=== PATIENT | male | born 1950 | race Caucasian/White ===

== ENCOUNTER 2017-08-03 20:55 | Emergency (ER) | payer MEDICARE, OTHER, SELFPAY ==
[2017-08-03 20:56] VITALS: BP 126/78; PULSE 72; RESP 18; TEMP 36.8; O2SAT 97; BMI 23.7
--- NOTE | 2017-08-03 20:59 | RAD_ITS ---
STUDY: X-RAY - LEFT WRIST REASON FOR EXAM: Male, 67 years old. Fall, pain TECHNIQUE: 3 view(s) of the wrist were obtained. COMPARISON: None. FINDINGS: Normal visualized distal radius and ulna. Normal radiocarpal articulation. Normal distal radioulnar articulation. There is a transverse fracture of the waist of the scaphoid carpal bone. Normal carpal articulations. Normal carpometacarpal articulation of the thumb. Normal second through fifth carpometacarpal articulations. Normal visualized metacarpal bones. Mild dorsal soft tissue swelling. RAD/Wrist min 3 Views IMPRESSION: Nondisplaced fracture waist of the scaphoid. Electronically Signed: Britton Villagomez DO at 21:13 EDT , Service support ,
--- NOTE | 2017-08-03 22:22 | ED.DCSUM_ITS ---
- ER Visit Summary Date of Service: 08/03/17 Chief Complaint: Left wrist injury History of Present Illness: The patient is a 67 M who tripped and fell today injuring his left wrist. Patient states that he had initially had a swollen area at the base of the fourth metacarpal that he popped back into place. He denies striking his head or loss of consciousness. He is right-hand dominant. Physical Examination: Vital signs are unremarkable. Patient sitting upright in bed no acute distress. Head neck examination was no external sign of trauma. No C-spine tenderness. Heart is regular rate and rhythm. On lung sounds are clear. Left upper extremity examination reveals no tenderness of the left shoulder or elbow. He does have diffuse tenderness around the left wrist with mild edema. He has normal sensation and cap refill in his fingers. He is able to wiggle fingers without difficulty. Test Results: Left wrist x-rays reveal nondisplaced fracture at the waist of the scaphoid bone. Emergency Department Course and Treatment: Test results were discussed with patient and at bedside. Patient declines anything for pain. He is placed in an Ortho-Glass thumb spica splint. I discussed with him the importance of very close follow-up due to the blood flow to this bone and sometimes having difficulty getting it to heal appropriately. He understands. He is a patient of [facility] and he is given Dr. Abernathy's phone number for follow-up. He is also given Dr. Varma who is on-call for [facility] orthopedics. Treatment Plan: [] Disposition: Discharge Impression: 1. Mechanical fall 2. Left scaphoid fracture This note was generated with [employer] dictation software. It may contain incorrect words, spelling, and punctuation that were not noted in review of the chart prior to signing ED Disposition - Plan for ED Patient: Disposition: Home or Assisted Living Chief Complaint: Upper Extremity Injury Instructions: ED Fx Wrist Navicular Conf Referrals: Bartolo Abernathy MD [STAFF PHYSICIAN] - 5-7 Days Jamie Varma MD [STAFF PHYSICIAN] - 5-7 Days
== END 2017-08-03 23:00 | disposition home or self-care (01) ==
PROVIDERS: Emergency Provider Emergency Medicine; Family Provider Family Medicine; PCP Family Medicine
DX: S62.002A Unspecified fracture of navicular [scaphoid] bone of left wrist, initial encounter for closed fracture (principal); W01.0XXA Fall on same level from slipping, tripping and stumbling without subsequent striking against object, initial encounter; Y93.9 Activity, unspecified; Y92.9 Unspecified place or not applicable; Z90.49 Acquired absence of other specified parts of digestive tract
CPT/HCPCS: 29125; 73110; 99282

== ENCOUNTER 2018-08-27 05:18 | Inpatient (IN) | payer MEDICARE, OTHER, SELFPAY ==
[2018-08-27] VITALS (15 sets, daily range): BP systolic 109–144; BP diastolic 60–92; PULSE 78–97; RESP 16–18; TEMP 36.9–37.9; O2SAT 95–100; BMI 21.9
--- NOTE | 2018-08-27 05:38 | CT_ITS ---
ABDOMEN PAIN X 6 WEEKS BUT WORSE THIS AMHX:BPH,GILBERT'S SYNDROME,LUPUS,PARKINSON'S.APPENDECTOMY,CHOLECYSTECTOMY no history of recent surgery EXAMINATION: CT Abdomen And Pelvis W/O Contrast TECHNIQUE: Helically acquired images were obtained of the abdomen and pelvis without oral or IV contrast as per renal stone protocol. A radiation dose optimization technique was used for this scan. IV Contrast dosage and agent: None. Oral contrast: None. COMPARISON: None FINDINGS: Lower thorax: Clear. No pleural effusion or pericardial effusion. Normal heart size. Small pneumoperitoneum with gas primarily anterior to the liver. Surgical absence of the gallbladder. No biliary dilatation. Limited non-infusion exam. Allowing for this, negative liver and spleen. Poor definition of the pancreatic head and question mild peripancreatic edema and mild periduodenal edema of the proximal duodenum. Gas and fluid within the stomach and fluid within the duodenum which is nondilated. Both kidneys are normal in position. No renal or ureteral calculi and no hydronephrosis or hydroureter. Bilateral small renal cysts. Adrenal glands are not enlarged. Abdominal aorta is atherosclerotic and normal in caliber. No retroperitoneal lymph node enlargement. No free fluid identified within the abdomen or pelvis. GI tract: No obstruction. Constipation pattern with large fecal residue within the right and transverse colon. Distal diverticulosis coli. No diverticulitis or pericolonic inflammatory changes seen. Previous appendectomy. Pelvis: Mild prostatic enlargement. Normal urinary bladder. No free fluid or lymph node enlargement. Metallic tacks related to previous right inguinal hernia repair. Bones: No acute osseous abnormality. CT/Abdomen/Pelvis without Cont IMPRESSION: 1. Small pneumoperitoneum primarily within the upper abdomen, anterior to the liver. No history of recent surgery and therefore a perforated abdominal viscus appears likely. 2. Peripancreatic edema bordering the pancreatic head and adjacent cruz-duodenal edema is questioned. Previous cholecystectomy. 3. Constipation pattern. Diverticulosis coli. No diverticulitis seen. 4. Additional chronic changes, as above. Comment: Abnormal CT findings discussed by Dr. Batista with Dr. Jourdan Funk, the referring ER physician. Individualized dose optimization techniques were used for this CT. at 0657 Reported and signed by: Garcia Batista MD Electronically Signed: Garcia Batista, at 6:56 EDT Tel , Service support ,
--- NOTE | 2018-08-27 05:40 | ED.DCSUM_ITS ---
- ER Visit Summary Date of Service: 08/27/18 Chief Complaint: Abdominal pain History of Present Illness: The patient is a 68 M who presents with abdominal pain. This initially began about 6 weeks ago when he was started on Sinemet. The prescription was increased and his abdominal pain also increased. He was told to go back to the previous dosing by his neurologist. However his pain is continued and has been severe. There were no particular change in symptoms this morning. He denies any nausea vomiting or diarrhea. No fever chest pain or shortness of breath. No urinary symptoms. He has had a prior cholecystectomy. He also has a history of ruptured appendicitis which was treated just with an tibiotics. Physical Examination: Afebrile vitals notable for temporal artery temperature 99.9 Heart regular rate and rhythm Lungs clear Abdomen soft nondistended he does have epigastric tenderness without guarding without rebound Alert Test Results: Labs notable for white blood cell count 14.5. Total bilirubin is 2.2. CT of the abdomen and pelvis shows small pneumoperitoneum anterior to the liver and possible peripancreatic edema, constipation. Emergency Department Course and Treatment: Patient's pain on presentation was 4. He initially declined medications but then did request something but does not want any narcotics. He was given 15 mg of IV Toradol. His work-up as above is concerning for viscus perforation. I spoke to Dr. Roy for surgical consultation. Patient was given IV Zosyn here. Treatment Plan: [] Disposition: Pending surgical consult Impression: Pneumoperitoneum This note was generated with [employer] dictation software. It may contain incorrect words, spelling, and punctuation that were not noted in review of the chart prior to signing ED Disposition - Plan for ED Patient: Referrals: Gerald Winslow MD [Primary Care Provider] -
[2018-08-27 05:48] LABS: Absolute Lymphocyte Count 0.72 X10^3/ul (0.83-4.51); Absolute Neutrophil Count 12.2 X10^3/uL (2.0-7.7); Basophil# 0.02 X10^3/uL; Basophil% 0.1 % (0-1); Eosinophil# 0.06 X10^3/uL; Eosinophils% 0.4 % (0-5); Hematocrit 42.6 % (40-54); Lymphocyte # 0.72 X10^3/ul (4.0); Mean Corp Hgb Conc 35.2 g/gl (32-36); Mean Corpuscular Hgb 32.4 pg (27.0-32.0); Mean Platelet Vol. 9.7 fl (6.2-12.0); Monocyte# 1.48 X10^3/uL; Monocyte% 10.2 % (0-10); Neutrophil # 12.15 X10^3/uL (2.7-7.7); POSITIVE COUNT NO; POSITIVE DIFFERENTIAL NO; POSITIVE MORPHOLOGY NO; Platelet Count 247 K/mm3 (150-450); RBC Distribution Width CV 12.7 % (11.6-14.6); RBC Distribution Width SD 41.8 fl (35.1-43.9); Red Blood Count 4.63 M/mm3 (4.6-6.2); White Blood Count 14.5 K/mm3 (4.4-11.0)
[2018-08-27] MEDS: Ketorolac 30 MG/ML Syringe 15 MG IV (05:49)
[2018-08-27] MEDS: 0.9% Normal Saline 1,000 ML 1000 ML IV (05:49)
[2018-08-27 06:00] LABS: Albumin, Serum 3.6 g/dL (3.2-5.0); BUN 28 mg/dL (7-18); BUN/Creat Ratio 31.6 RATIO (10-20); Creatinine, Serum 0.88 mg/dL (0.70-1.30); EST Glomerular Filtration Rate 91 mL/min (>60); Est Glom Filt Rate - Afr Amer 110 mL/min (>60); Estimated Creatinine Clearance 77.54 ml/min; Glucose 112 mg/dL (74-106); Protein, Total 7.3 g/dL (6.4-8.2)
[2018-08-27 06:01] LABS: AST(SGOT) 26 U/L (15-37); Alanine Aminotransfer ALT/SGPT 47 U/L (16-61); Alkaline Phosphatase 95 U/L (45-117); Anion Gap 7 (5-15); Calcium,Total 8.8 mg/dL (8.5-10.1); Chloride 103 mmol/L (98-107); Globulin 3.7 g/dL (2.2-4.2); Lipase 62 U/L (73-393); Potassium 4.2 mmol/L (3.5-5.1); Sodium Level 136 mmol/L (136-145)
--- NOTE | 2018-08-27 07:25 | ED.RN ---
DR VILLARREAL PRESENT AT PT BEDSIDE.
--- NOTE | 2018-08-27 07:30 | PCM.HP.STD ---
Problem List (1) Epigastric abdominal pain of unknown etiology Status: Acute (2) Perforated abdominal viscus Status: Acute History of Present Illness Date of Admission: 08/27/18 The patient is a 68 year old M who presented last night with abdominal pain.This initially began about 6 weeks ago when he was started on Sinemet. The prescription was increased and his abdominal pain also increased. He was told to go back to the previous dosing by his neurologist. However his pain is continued and has been severe. There were no particular change in symptoms this morning. He denies any nausea vomiting or diarrhea. No fever chest pain or shortness of breath. No urinary symptoms. He has had a prior cholecystectomy. He also has a history of ruptured appendicitis which was treated just with antibiotics. In addition the patient has been on Mobic for possible meniscus tear to his left knee. Subsequently was also stopped. While in the emergency department a CAT scan of the abdomen was obtained which showed air over the liver possible swelling of the duodenum pancreatic head was not easily seen due to edema around the area. Past Medical History Allergies No Known Allergies Allergy (Verified 08/03/17 20:56) Home Medications: Ambulatory Orders Medication Instructions Recorded Cholecalciferol (VIT D3) [Vitamin 1,000 unit PO DAILY 08/27/18 D] Digestive 8/L.acidoph/Pectin 1 each PO ACHS 08/27/18 [Digestive Enzymes Tablet] Hi Lipase Enzyme With Fatty Me 1 tab PO DAILY 08/27/18 Mens X- Action Reloaded 1 tab PO DAILY 08/27/18 Multivitamin with Minerals 1 each PO DAILY 08/27/18 [Multiple Vitamin] [place]-3 Fatty Acids/Fish Oil [Fish 1 each PO DAILY 08/27/18 Oil 1,000 mg Capsule] Testoplex Plus 1 tab PO DAILY 08/27/18 Vitamin B Complex 1 each PO DAILY 08/27/18 Surgical History: cholecystectomy Lives: Spouse/ Significant Other Smoking Status: Never smoker - *Family History Maternal History Items: No pertinent history Review of Systems Constitutional: Denies: Chills, Fever, Weight Change Eyes: Denies: Blurred vision, Pain, Redness, Vision Change HEENT: Denies: Dysphasia, Ear Pain, Eye Pain, Head Aches, Hearing Changes, Sore Throat Cardiovascular: Denies: Chest Pain, Chest Pressure, Chest Tightness, Palpitations Respiratory: Denies: Cough, Hemoptysis, Shortness of breath at rest, Shortness of breath upon exertion, Wheezing Gastrointestinal: Reports: Abdominal Pain. Denies: Diarrhea, Nausea, Vomiting Genitourinary: Denies: Dysuria, Frequency, Hematuria, Urgency Musculoskeletal: Denies: Joint Pain Skin: Denies: Lesions, Rash, Wounds Neurological: Denies: Change in Speech, Confusion, Numbness, Tingling, Seizures VTE Information - Inpt Only VTE Present on Admission: No VTE Mechan Device Prophylaxis: SCD's VTE Pharm Prophylaxis ordered?: No Reason prophylaxis not ordered:: Treatment Not Indicated Patient Problems: Active and Suspected Problems Epigastric abdominal pain of unknown etiology (Acute) Perforated abdominal viscus (Acute) - Physical Exam General: Alert, Oriented x3 Lungs: Clear to auscultation Cardiovascular: Regular rate, Regular Rhythm, No murmurs Abdomen: Tender - His abdomen is soft he has obvious peritoneal signs mostly located in the epigastric area. Vital Signs Temp Pulse Resp BP Pulse Ox 99.9 F H 79 16 140/80 H 99 08/27/18 05:19 08/27/18 07:26 08/27/18 07:26 08/27/18 07:26 08/27/18 07:26 Oxygen Delivery Method Room Air Weight: 152 lb 8.958 oz Body Mass Index (BMI) 21.9 Laboratory Tests Past 24 Hrs 08/27/18 08/27/18 05:25 05:25 WBC 14.5 H RBC 4.63 Hgb 15.0 Hct 42.6 MCV 92.0 MCH 32.4 H MCHC 35.2 RDW 12.7 RDW Differential 41.8 Plt Count 247 MPV 9.7 Immature Gran % (Auto) 0.300 Neut % (Auto) 84.0 H Lymph % (Auto) 5.0 L [place] % (Auto) 10.2 H Eos % (Auto) 0.4 Baso % (Auto) 0.1 Absolute Neuts (auto) 12.2 H Absolute Lymphs (auto) 0.72 L Total Counted Not Reportable Sodium 136 Potassium 4.2 Chloride 103 Carbon Dioxide 26.0 Anion Gap 7 BUN 28 H Creatinine 0.88 Estim Creat Clear Calc 77.54 Est GFR (MDRD) Af Amer 110 Est GFR (MDRD) Non-Af 91 BUN/Creatinine Ratio 31.6 H Glucose 112 H Calcium 8.8 Total Bilirubin 2.20 H AST 26 ALT 47 Alkaline Phosphatase 95 Total Protein 7.3 Albumin 3.6 Globulin 3.7 Albumin/Globulin Ratio 1.0 Lipase 62 L Assessment/Plan All Active Problems Epigastric abdominal pain of unknown etiology (Acute) Perforated abdominal viscus (Acute) Plan is to taken for an exploratory laparoscopy possible laparotomy. He more likely has a perforated duodenal ulcer which we will hopefully be able to be treated with a Som patch and irrigation of the abdomen. Risk and benefits to include bleeding infection possible heart attacks pneumonia strokes up to and including have all been explained to the patient and his spouse they are willing to proceed.
[2018-08-27] MEDS: Bupivacaine Mpf 0.5% 30 ML VIAL (08:45)
--- NOTE | 2018-08-27 09:24 | PCM.OPRPT ---
Problem List (1) Epigastric abdominal pain of unknown etiology Status: Acute (2) Perforated abdominal viscus Status: Acute (3) Perforated duodenal bulb ulcer Status: Acute Report of Operation Date of Procedure: 08/27/18 Pre-Operative Diagnosis: Epigastric abdominal pain. Perforated viscus Post-Operative Diagnosis: Perforated duodenal bulb ulcer Surgery/Procedure Performed:: Exploratory laparoscopy and Som patch repair of duodenal bulb ulcer Type of Anesthesia:: General Anesthesiologist: Charanjit Tadeo Drains: 15 round Alex-Gudino Estimated Blood Loss (mL): < 25 CC Fluids Replaced: 1200 cc LR Description of Procedure: Patient was brought into the operating room placed in the supine position under excellent general trach intubation Hallman catheter was placed. The abdomen was sterilely prepped and draped in the usual fashion. Local was injected if umbilically. Dissection was carried down fascia was grasped with Jolie varies needle was placed inside the abdomen the abdomen was insufflated 15 torr a 10/12 trocar was placed without difficulty. Right upper quadrant #5 trocar was placed in left upper quadrant #5 trocar was placed and became very apparent as we just inflated the abdomen and placed the patient in the head up position that a small 3 mm perforated duodenal bulb ulcer was identified. There is a lot of swelling in the area it was not actively bleeding. I isolated a piece of omentum which was actually quite difficult to do on him since he was so thin off of the transverse colon I brought it up it was going to easily cover this patch. I placed my first stitch onto the tissue superior to where the duodenal ulcer was this quickly ripped through made a determination I was going to have to actually patch this off of the falciform ligament. I placed the O Endo Stitch through this area and brought the other into the Endo Stitch through the omentum. Dhaval's knot was used with a knot pusher and I placed the patch so that it covered the defect completely. I made the determination looking and feeling around the tissue here that I was not going to be able to place any other sutures on the duodenum nor the stomach itself. I placed a 15 round Alex-Gudino drain going near the perforation keeping it in the lesser sac. I irrigated out the abdomen with 2 L of irrigation. I sutured the drain in place with a 3-0 nylon. I remove the trochars under direct visualization I good hemostasis. SASKIA drain was hooked to bulb suction 1012 trocar was closed with a [id number] stitch of 0 Vicryl skin incisions were closed with subcuticular stitches of 4-0 Monocryl. Patient tolerated the procedure well. - Admit VTE Documentation VTE Present on Admission: No VTE Mechan Device Prophylaxis: SCD's VTE Pharm Prophylaxis ordered?: No Reason prophylaxis not ordered:: Treatment Not Indicated
--- NOTE | 2018-08-27 09:31 | OP.PCM_ITS ---
Problem List (1) Epigastric abdominal pain of unknown etiology Status: Acute (2) Perforated abdominal viscus Status: Acute (3) Perforated duodenal bulb ulcer Status: Acute Report of Operation Date of Procedure: 08/27/18 Pre-Operative Diagnosis: Epigastric abdominal pain. Perforated viscus Post-Operative Diagnosis: Perforated duodenal bulb ulcer Surgery/Procedure Performed:: Exploratory laparoscopy and Som patch repair of duodenal bulb ulcer Type of Anesthesia:: General Anesthesiologist: Charanjit Tadeo Drains: 15 round Alex-Gudino Estimated Blood Loss (mL): < 25 CC Fluids Replaced: 1200 cc LR Description of Procedure: Patient was brought into the operating room placed in the supine position under excellent general trach intubation Hallman catheter was placed. The abdomen was sterilely prepped and draped in the usual fashion. Local was injected if umbilically. Dissection was carried down fascia was grasped with Jolie varies needle was placed inside the abdomen the abdomen was insufflated 15 torr a 10/12 trocar was placed without difficulty. Right upper quadrant #5 trocar was placed in left upper quadrant #5 trocar was placed and became very apparent as we just inflated the abdomen and placed the patient in the head up position that a small 3 mm perforated duodenal bulb ulcer was identified. There is a lot of swelling in the area it was not actively bleeding. I isolated a piece of omentum which was actually quite difficult to do on him since he was so thin off of the transverse colon I brought it up it was going to easily cover this patch. I lele lisa my first stitch onto the tissue superior to where the duodenal ulcer was this quickly ripped through made a determination I was going to have to actually patch this off of the falciform ligament. I placed the O Endo Stitch through this area and brought the other into the Endo Stitch through the omentum. Dhaval's knot was used with a knot pusher and I placed the patch so that it covered the defect completely. I made the determination looking and feeling around the tissue here that I was not going to be able to place any other sutures on the duodenum nor the stomach itself. I placed a 15 round Alex- Gudino drain going near the perforation keeping it in the lesser sac. I irrigated out the abdomen with 2 L of irrigation. I sutured the drain in place with a 3-0 nylon. I remove the trochars under direct visualization I good hemostasis. SASKIA drain was hooked to bulb suction 1012 trocar was closed with a [id number] stitch of 0 Vicryl skin incisions were closed with subcuticular stitches of 4-0 Monocryl. Patient tolerated the procedure well. - Admit VTE Documentation VTE Present on Admission: No VTE Mechan Device Prophylaxis: SCD's VTE Pharm Prophylaxis ordered?: No Reason prophylaxis not ordered:: Treatment Not Indicated
[2018-08-27] MEDS: Lactated Ringers 1,000 ML 125 ML IV ×2 (10:45→19:26)
[2018-08-27] MEDS: Sucralfate 1 GM Tablet PO ×3 (11:25→22:11)
[2018-08-27] MEDS: Carbidopa/Levodopa 25/100 Tablet PO ×2 (11:39→15:53)
[2018-08-27] MEDS: Ondansetron 4 MG/2 ML Vial IV (19:26)
[2018-08-27] MEDS: HYDROmorphone 1 MG/ML Syringe IV (19:26)
[2018-08-28 03:20] VITALS: BP 126/68; PULSE 81; RESP 16; TEMP 37.2; O2SAT 98
[2018-08-28] MEDS: Lactated Ringers 1,000 ML 125 ML IV ×3 (03:22→18:36)
[2018-08-28] MEDS: Sucralfate 1 GM Tablet PO ×5 (03:22→21:37)
[2018-08-28] MEDS: Carbidopa/Levodopa 25/100 Tablet PO ×3 (06:46→16:04)
[2018-08-28 09:51] VITALS: BP 134/73; PULSE 68; RESP 18; TEMP 37.1; O2SAT 97
--- NOTE | 2018-08-28 10:35 | PCM.PN.SRG ---
Patient Problems: Active and Suspected Problems Epigastric abdominal pain of unknown etiology (Acute) Perforated abdominal viscus (Acute) Perforated duodenal bulb ulcer (Acute) Subjective: Patient has had no flatus as of yet. Abdominal pain is improving. Objective: Abdomen is soft nontender dressings are dry - Physical Exam Vital Signs Temp Pulse Resp BP Pulse Ox 98.8 F 68 18 134/73 H 97 08/28/18 09:51 08/28/18 09:51 08/28/18 09:51 08/28/18 09:51 08/28/18 09:51 Oxygen Delivery Method Room Air Weight: 152 lb 8.958 oz Body Mass Index (BMI) 21.9 Intake and Output for Last 24 Hours 08/26/18 08/27/18 08/28/18 23:59 23:59 23:59 Intake Total 3581 / 3581 1056 / 1056 Output Total 2440 / 2440 767 / 767 Balance 1141 / 1141 289 / 289 Medical Necessity - Tobacco Use Smoking Status: Never smoker Assessment/Plan All Active Problems Epigastric abdominal pain of unknown etiology (Acute) Perforated abdominal viscus (Acute) Perforated duodenal bulb ulcer (Acute) Postop day #1 Anticipate leaving [facility] for the weekend. We will get an upper GI with [facility]astrogra[facility] on Thursday okay for ice chips
--- NOTE | 2018-08-28 10:40 | PN.SURG_ITS ---
Patient Problems: Active and Suspected Problems Epigastric abdominal pain of unknown etiology (Acute) Perforated abdominal viscus (Acute) Perforated duodenal bulb ulcer (Acute) Subjective: Patient has had no flatus as of yet. Abdominal pain is improving. Objective: Abdomen is soft nontender dressings are dry - Physical Exam Vital Signs Temp Pulse Resp BP Pulse Ox 98.8 F 68 18 134/73 H 97 08/28/18 09:51 08/28/18 09:51 08/28/18 09:51 08/28/18 09:51 08/28/18 09:51 Oxygen Delivery Method Room Air Weight: 152 lb 8.958 oz Body Mass Index (BMI) 21.9 Intake and Output for Last 24 Hours 08/26/18 08/27/18 08/28/18 23:59 23:59 23:59 Intake Total 3581 / 3581 1056 / 1056 Output Total 2440 / 2440 767 / 767 Balance 1141 / 1141 289 / 289 Medical Necessity - Tobacco Use Smoking Status: Never smoker Assessment/Plan All Active Problems Epigastric abdominal pain of unknown etiology (Acute) Perforated abdominal viscus (Acute) Perforated duodenal bulb ulcer (Acute) Postop day #1 Anticipate leaving [facility] for the weekend. We will get an upper GI with Gastrografin on Thursday okay for ice chips
[2018-08-28 12:05] LABS: Absolute Lymphocyte Count 0.93 X10^3/ul (0.83-4.51); Absolute Neutrophil Count 8.2 X10^3/uL (2.0-7.7); Basophil# 0.03 X10^3/uL; Basophil% 0.3 % (0-1); Eosinophil# 0.25 X10^3/uL; Eosinophils% 2.5 % (0-5); Hematocrit 37.5 % (40-54); Hemoglobin 12.5 g/dl (13.0-16.5); Lymphocyte # 0.93 X10^3/ul (4.0); Lymphocyte % 9.2 % (19-41); Mean Corp Hgb Conc 33.3 g/gl (32-36); Mean Corpuscular Volume 95.9 fL (80-94); Mean Platelet Vol. 9.5 fl (6.2-12.0); Neutrophil # 8.15 X10^3/uL (2.7-7.7); Neutrophil % 80.9 % (47-70); Platelet Count 190 K/mm3 (150-450); RBC Distribution Width CV 13.1 % (11.6-14.6); RBC Distribution Width SD 45.3 fl (35.1-43.9); Red Blood Count 3.91 M/mm3 (4.6-6.2); White Blood Count 10.1 K/mm3 (4.4-11.0)
[2018-08-28 12:07] LABS: POSITIVE COUNT NO; POSITIVE DIFFERENTIAL NO; POSITIVE MORPHOLOGY NO
[2018-08-28 12:26] LABS: ALB/GLOB Ratio 0.8 RATIO (0.9-2.4); AST(SGOT) 18 U/L (15-37); Alanine Aminotransfer ALT/SGPT 9 U/L (16-61); Albumin, Serum 2.7 g/dL (3.2-5.0); Alkaline Phosphatase 73 U/L (45-117); Anion Gap 7 (5-15); BUN 16 mg/dL (7-18); BUN/Creat Ratio 17.4 RATIO (10-20); Calcium,Total 8.3 mg/dL (8.5-10.1); Chloride 106 mmol/L (98-107); Creatinine, Serum 0.92 mg/dL (0.70-1.30); EST Glomerular Filtration Rate 87 mL/min (>60); Est Glom Filt Rate - Afr Amer 105 mL/min (>60); Estimated Creatinine Clearance 74.17 ml/min; Globulin 3.4 g/dL (2.2-4.2); Glucose 79 mg/dL (74-106); Potassium 3.9 mmol/L (3.5-5.1); Protein, Total 6.1 g/dL (6.4-8.2); Sodium Level 139 mmol/L (136-145)
[2018-08-28 14:31] VITALS: BP 134/70; PULSE 70; RESP 16; TEMP 37.4; O2SAT 98
[2018-08-28 20:23] VITALS: BP 142/81; PULSE 68; RESP 16; TEMP 37; O2SAT 99
[2018-08-29] MEDS: Sucralfate 1 GM Tablet PO ×5 (02:00→21:22)
[2018-08-29 02:19] VITALS: BP 142/77; PULSE 68; RESP 16; TEMP 37.1; O2SAT 97
[2018-08-29] MEDS: Lactated Ringers 1,000 ML 125 ML IV (04:32)
[2018-08-29] MEDS: Carbidopa/Levodopa 25/100 Tablet PO ×3 (06:11→15:52)
[2018-08-29 06:18] LABS: Absolute Neutrophil Count 5.1 X10^3/uL (2.0-7.7); Basophil# 0.03 X10^3/uL; Basophil% 0.4 % (0-1); Eosinophil# 0.39 X10^3/uL; Eosinophils% 5.5 % (0-5); Hematocrit 35.8 % (40-54); Hemoglobin 12.1 g/dl (13.0-16.5); Mean Corp Hgb Conc 33.8 g/gl (32-36); Mean Corpuscular Hgb 32.2 pg (27.0-32.0); Mean Corpuscular Volume 95.2 fL (80-94); Mean Platelet Vol. 9.7 fl (6.2-12.0); Monocyte# 0.65 X10^3/uL; Monocyte% 9.1 % (0-10); Neutrophil # 5.05 X10^3/uL (2.7-7.7); Neutrophil % 70.9 % (47-70); Platelet Count 191 K/mm3 (150-450); RBC Distribution Width CV 12.8 % (11.6-14.6); RBC Distribution Width SD 44.5 fl (35.1-43.9); Red Blood Count 3.76 M/mm3 (4.6-6.2); White Blood Count 7.1 K/mm3 (4.4-11.0)
[2018-08-29 06:31] LABS: POSITIVE COUNT NO; POSITIVE DIFFERENTIAL NO; POSITIVE MORPHOLOGY NO
[2018-08-29 07:38] LABS: ALB/GLOB Ratio 0.7 RATIO (0.9-2.4); AST(SGOT) 16 U/L (15-37); Alanine Aminotransfer ALT/SGPT 26 U/L (16-61); Albumin, Serum 2.4 g/dL (3.2-5.0); Alkaline Phosphatase 62 U/L (45-117); Anion Gap 9 (5-15); BUN 15 mg/dL (7-18); BUN/Creat Ratio 17.6 RATIO (10-20); Calcium,Total 8.3 mg/dL (8.5-10.1); Chloride 107 mmol/L (98-107); Creatinine, Serum 0.85 mg/dL (0.70-1.30); EST Glomerular Filtration Rate 95 mL/min (>60); Est Glom Filt Rate - Afr Amer 115 mL/min (>60); Estimated Creatinine Clearance 80.28 ml/min; Globulin 3.4 g/dL (2.2-4.2); Glucose 70 mg/dL (74-106); Potassium 3.8 mmol/L (3.5-5.1); Protein, Total 5.8 g/dL (6.4-8.2); Sodium Level 142 mmol/L (136-145)
[2018-08-29 07:52] VITALS: BP 122/69; PULSE 68; RESP 16; TEMP 37.1; O2SAT 99
--- NOTE | 2018-08-29 09:52 | PN.SURG_ITS ---
Patient Problems: Active and Suspected Problems Epigastric abdominal pain of unknown etiology (Acute) Perforated abdominal viscus (Acute) Perforated duodenal bulb ulcer (Acute) Subjective: No complaints this morning. Pain is improving. SASKIA drainage is decreasing. Objective: Abdomen is soft appropriately tender around SASKIA site - Physical Exam Vital Signs Temp Pulse Resp BP Pulse Ox 98.8 F 68 16 122/69 H 99 08/29/18 07:52 08/29/18 07:52 08/29/18 07:52 08/29/18 07:52 08/29/18 07:52 Oxygen Delivery Method Room Air Weight: 152 lb 8.958 oz Body Mass Index (BMI) 21.9 Intake and Output for Last 24 Hours 08/27/18 08/28/18 08/29/18 23:59 23:59 23:59 Intake Total 3581 / 3581 3567 / 3567 987 / 987 Output Total 2440 / 2440 1597 / 1597 1320 / 1320 Balance 1141 / 1141 1969 / 1969 -333 / -333 Laboratory Tests Past 24 Hrs 08/28/18 08/28/18 08/29/18 11:35 11:35 05:15 WBC 10.1 7.1 RBC 3.91 L 3.76 L Hgb 12.5 L 12.1 L Hct 37.5 L 35.8 L MCV 95.9 H 95.2 H MCH 32.0 32.2 H MCHC 33.3 33.8 RDW 13.1 12.8 RDW Differential 45.3 H 44.5 H Plt Count 190 191 MPV 9.5 9.7 Immature Gran % (Auto) 0.100 0.100 Neut % (Auto) 80.9 H 70.9 H Lymph % (Auto) 9.2 L 14.0 L [place] % (Auto) 7.0 9.1 Eos % (Auto) 2.5 5.5 H Baso % (Auto) 0.3 0.4 Absolute Neuts (auto) 8.2 H 5.1 Absolute Lymphs (auto) 0.93 1.00 Total Counted Not Reportable Not Reportable Sodium 139 Potassium 3.9 Chloride 106 Carbon Dioxide 26.0 Anion Gap 7 BUN 16 Creatinine 0.92 Estim Creat Clear Calc 74.17 Est GFR (MDRD) Af Amer 105 Est GFR (MDRD) Non-Af 87 BUN/Creatinine Ratio 17.4 Glucose 79 Calcium 8.3 L Total Bilirubin 1.60 H AST 18 ALT 9 L Alkaline Phosphatase 73 Total Protein 6.1 L Albumin 2.7 L Globulin 3.4 Albumin/Globulin Ratio 0.8 L 08/29/18 05:15 WBC RBC Hgb Hct MCV MCH MCHC RDW RDW Differential Plt Count MPV Immature Gran % (Auto) Neut % (Auto) Lymph % (Auto) [place] % (Auto) Eos % (Auto) Baso % (Auto) Absolute Neuts (auto) Absolute Lymphs (auto) Total Counted Sodium 142 Potassium 3.8 Chloride 107 Carbon Dioxide 26.0 Anion Gap 9 BUN 15 Creatinine 0.85 Estim Creat Clear Calc 80.28 Est GFR (MDRD) Af Amer 115 Est GFR (MDRD) Non-Af 95 BUN/Creatinine Ratio 17.6 Glucose 70 L Calcium 8.3 L Total Bilirubin 1.20 H AST 16 ALT 26 Alkaline Phosphatase 62 Total Protein 5.8 L Albumin 2.4 L Globulin 3.4 Albumin/Globulin Ratio 0.7 L Medical Necessity - Tobacco Use Smoking Status: Never smoker Assessment/Plan All Active Problems Epigastric abdominal pain of unknown etiology (Acute) Perforated abdominal viscus (Acute) Perforated duodenal bulb ulcer (Acute) Postop day #2 Continue present care. We will obtain a Gastrografin study tomorrow through the NG tube
[2018-08-29 13:42] VITALS: BP 126/70; PULSE 66; RESP 18; TEMP 36.7; O2SAT 98
[2018-08-29] MEDS: Lactated Ringers 1,000 ML 75 ML IV (15:03)
[2018-08-29 15:05] VITALS: PULSE 80
[2018-08-29 21:30] VITALS: BP 143/80; PULSE 63; RESP 16; TEMP 36.8; O2SAT 99
[2018-08-30] MEDS: Sucralfate 1 GM Tablet PO ×4 (02:02→15:30)
[2018-08-30 03:10] VITALS: BP 139/78; PULSE 62; RESP 16; TEMP 36.7; O2SAT 97
[2018-08-30] MEDS: Lactated Ringers 1,000 ML 75 ML IV (06:25)
[2018-08-30] MEDS: Carbidopa/Levodopa 25/100 Tablet PO ×3 (06:25→15:30)
[2018-08-30 07:59] VITALS: BP 139/73; PULSE 65; RESP 18; TEMP 36.7; O2SAT 99
--- NOTE | 2018-08-30 09:04 | PN.SURG_ITS ---
Patient Problems: Active and Suspected Problems Epigastric abdominal pain of unknown etiology (Acute) Perforated abdominal viscus (Acute) Perforated duodenal bulb ulcer (Acute) Subjective: Patient evaluated resting comfortably in a chair. He notes incisional discomfort and discomfort at the NG tube. He denies nausea, vomiting. - Physical Exam General: Alert, Oriented x3, Cooperative HEENT: - - NG tube intact with clear to light green drainage Abdomen: Bowel Sounds Present, Soft, Non Tender, Non-Distended, - - SASKIA drain intact with serous fluid present Vital Signs Temp Pulse Resp BP Pulse Ox 98.0 F 65 18 139/73 H 99 08/30/18 07:59 08/30/18 07:59 08/30/18 07:59 08/30/18 07:59 08/30/18 07:59 Oxygen Delivery Method Room Air Weight: 152 lb 8.958 oz Body Mass Index (BMI) 21.9 Intake and Output for Last 24 Hours 08/28/18 08/29/18 08/30/18 23:59 23:59 23:59 Intake Total 3567 / 3567 2468 / 2468 708 / 708 Output Total 1597 / 1597 3086 / 3086 935 / 935 Balance 1969 / 1969 -618 / -618 -227 / -227 Medical Necessity - Tobacco Use Smoking Status: Never smoker Assessment/Plan All Active Problems Epigastric abdominal pain of unknown etiology (Acute) Perforated abdominal viscus (Acute) Perforated duodenal bulb ulcer (Acute) I am following this patient in conjunction with Dr. Stevens Impression: s/p diagnostic laparoscopy with Som patch of duodenal ulcer Gastrografin study this morning Once results are back, will determine a plan to possibly remove NG tube and start a diet. We will continue to monitor this patient Code Visit Inpatient E&M: [address] [facility] Hosp L1 - No charge
--- NOTE | 2018-08-30 09:30 | RAD_ITS ---
STUDY: GASTROGRAFIN UPPER GI SERIES. REASON FOR EXAM: Male, 68 years old. History of duodenal ulcer repair. FLUOROSCOPY TIME (if supplied): (1:55) minutes/seconds. 8 images were obtained. TECHNIQUE: 120 cc of Gastrografin was placed into the stomach via the indwelling nasogastric tube. COMPARISON: None. FINDINGS: A drainage catheter is seen within the abdomen. The patient is status post recent duodenal ulcer repair. The stomach is unremarkable. The duodenum is unremarkable as well. There is no evidence of leakage. RAD/Upper GI Series Only IMPRESSION: Unremarkable examination. Electronically Signed: Cody Corrales, at 10:31 EDT , Service support ,
--- NOTE | 2018-08-30 12:39 | CASEMGMT ---
Addendum entered by Suraj Jimenes 08/30/18 12:50: Pt will return home with SASKIA drain. Will be dc'd Thursday or Thursday in office. states daughters are nurses, and able to assist if needed. Nurse Laney will do teaching prior to dc. Yolanda LEE Original Note: RN CM Assessment Presentation:Epigastric abd pain, perforated abdominal viscus. Intro role of CM and purpose of RN CM assessment. Demographics, PCP and Pharmacy verified. PCP: Dr. Winslow Specialists: Dr. Stevens Preferred Pharmacy: [facility] Insurance: [facility] Prescription Benefit: yes LNOK: , Suly Diaz Living Arrangements: Lives independently with . Denies any care needs and also confirmed pt is independent. Transportation: , family able to assist with transportation DME: none HHC: none Patient DC goals: Home DC PLAN: Home Yolanda LEE
[2018-08-30 14:00] VITALS: BP 140/75; PULSE 66; RESP 18; TEMP 36.5; O2SAT 100
--- NOTE | 2018-08-30 15:08 | PCM.DC.GS ---
Discharge Diet: Soft diet Discharge Activity: May not drive while taking narcotic pain medications. Lifting Restrictions: 10 pounds Additional Activity Instructions:: No showering until SASKIA drain is removed. Clean around drain with peroxide and keep covered with gauze. Change dressing daily. Empty at least daily and record drainage output. Call your doctor if your incision/area has: Continuous Slow Oozing, Sudden Increased Bleeding, Increased Pain/ Swelling, Increased Redness, Foul Smelling Discharge, Swelling at the incision site Call your doctor if you observe: Fever of 101 or Higher, Coldness, Increased Pain Suture Line Care: Avoid Pulling/Pushing, Avoid Pinching/Bending Remove Dressing in (days):: 3 - Remove plastic dressings in 3 days. Leave steri-strips in place. Cleanse incision/area with: Soap & Water Allergies/Adverse Reactions: Allergies No Known Allergies Allergy (Verified 08/03/17 20:56) Medications to take at Discharge Carbidopa/Levodopa 25/100 [Sinemet 25/100] 1 tab PO TID 08/27/18 Cholecalciferol (VIT D3) [Vitamin D] 1,000 unit PO DAILY 08/27/18 Digestive 8/L.acidoph/Pectin [Digestive Enzymes Tablet] 1 each PO ACHS 08/27/18 Hi Lipase Enzyme With Fatty Me 1 tab PO DAILY 08/27/18 Mens X- Action Reloaded 1 tab PO DAILY 08/27/18 Multivitamin with Minerals [Multiple Vitamin] 1 each PO DAILY 08/27/18 [place]-3 Fatty Acids/Fish Oil [Fish Oil 1,000 mg Capsule] 1 each PO DAILY 08/27/18 Testoplex Plus 1 tab PO DAILY 08/27/18 Vitamin B Complex 1 each PO DAILY 08/27/18 Omeprazole 40 mg PO DAILY #30 capsule. 08/30/18 Sucralfate [Carafate] 1 gm PO 4X/DAY #120 tablet 08/30/18 The following prescriptions were given: Omeprazole 40 mg PO DAILY #30 capsule. Sucralfate [Carafate] 1 gm PO 4X/DAY #120 tablet Primary Care Physician: Gerald Winslow MD [Primary Care Provider] - Test Results: Test results from this visit will be discussed in further detail at your follow-up appointment, if applicable. Please Follow Up With: Mamadou Stevens MD - Please call [phone] When: Thursday; 09/03 Proposed Discharge Date: 08/30/18
--- NOTE | 2018-08-30 15:12 | DCINST_ITS ---
Discharge Diet: Soft diet Discharge Activity: May not drive while taking narcotic pain medications. Lifting Restrictions: 10 pounds Additional Activity Instructions:: No showering until SASKIA drain is removed. Clean around drain with peroxide and keep covered with gauze. Change dressing daily. Empty at least daily and record drainage output. Call your doctor if your incision/area has: Continuous Slow Oozing, Sudden Increased Bleeding, Increased Pain/ Swelling, Increased Redness, Foul Smelling Discharge, Swelling at the incision site Call your doctor if you observe: Fever of 101 or Higher, Coldness, Increased Pain Suture Line Care: Avoid Pulling/Pushing, Avoid Pinching/Bending Remove Dressing in (days):: 3 - Remove plastic dressings in 3 days. Leave steri- strips in place. Cleanse incision/area with: Soap & Water Allergies/Adverse Reactions: Allergies No Known Allergies Allergy (Verified 08/03/17 20:56) Medications to take at Discharge Carbidopa/Levodopa 25/100 [Sinemet 25/100] 1 tab PO TID 08/27/18 Cholecalciferol (VIT D3) [Vitamin D] 1,000 unit PO DAILY 08/27/18 Digestive 8/L.acidoph/Pectin [Digestive Enzymes Tablet] 1 each PO ACHS 08/27/18 Hi Lipase Enzyme With Fatty Me 1 tab PO DAILY 08/27/18 Mens X- Action Reloaded 1 tab PO DAILY 08/27/18 Multivitamin with Minerals [Multiple Vitamin] 1 each PO DAILY 08/27/18 [place]-3 Fatty Acids/Fish Oil [Fish Oil 1,000 mg Capsule] 1 each PO DAILY 08/27/18 Testoplex Plus 1 tab PO DAILY 08/27/18 Vitamin B Complex 1 each PO DAILY 08/27/18 Omeprazole 40 mg PO DAILY #30 capsule. 08/30/18 Sucralfate [Carafate] 1 gm PO 4X/DAY #120 tablet 08/30/18 The following prescriptions were given: Omeprazole 40 mg PO DAILY #30 capsule. Sucralfate [Carafate] 1 gm PO 4X/DAY #120 tablet Primary Care Physician: Gerald Winslow MD [Primary Care Provider] - Test Results: Test results from this visit will be discussed in further detail at your follow- up appointment, if applicable. Please Follow Up With: Mamadou Stevens MD - Please call [phone] When: Thursday; 09/03 Proposed Discharge Date: 08/30/18
--- NOTE | 2018-08-30 15:13 | PCM.DC.SUM ---
Discharge Date and Diagnosis - Problem List Patient Problems: Active and Suspected Problems Epigastric abdominal pain of unknown etiology (Acute) Perforated abdominal viscus (Acute) Perforated duodenal bulb ulcer (Acute) Date of Admission: 08/27/18 Date of Discharge: 08/30/18 - Primary Discharge Diagnosis Active and Suspected Problems Epigastric abdominal pain of unknown etiology (Acute) Perforated abdominal viscus (Acute) Perforated duodenal bulb ulcer (Acute) Hospital Course and Treatment Imaging Results: 08/30/18 09:30 Upper GI Series Only [RAD] Urgent Operations: - - Exploratory laparoscopy and Som patch repair of duodenal bulb ulcer Summary of Care Provided: The patient is a 68 year old M who presented with 6 week history of progressively worsening abdominal pain. CT scan showed a perforated pneumoperitoneum anterior to the liver. Dr. Stevens performed an Exploratory laparoscopy and Som patch repair of duodenal bulb ulcer on 08/27/18. Patient tolerated the procedure well. He had an upper GI with Gastrografin on 08/30/18 which demonstrated no further duodenal leak. Upon discharge, patient notes very minimal amount of incisional discomfort. He is tolerating full liquids. He denies nausea, vomiting. Positive flatus, BM. Patient Problems: Active and Suspected Problems Epigastric abdominal pain of unknown etiology (Acute) Perforated abdominal viscus (Acute) Perforated duodenal bulb ulcer (Acute) - Physical Exam General: Alert, Oriented x3, Cooperative Abdomen: Bowel Sounds Present, Soft, Non Tender, - - Incisions c/d/i. No erythema or infection noted. Vital Signs Temp Pulse Resp BP Pulse Ox 97.7 F L 66 18 140/75 H 100 08/30/18 14:00 08/30/18 14:00 08/30/18 14:00 08/30/18 14:00 08/30/18 14:00 Oxygen Delivery Method Room Air Weight: 152 lb 8.958 oz Body Mass Index (BMI) 21.9 Intake and Output for Last 24 Hours 08/28/18 08/29/18 08/30/18 23:59 23:59 23:59 Intake Total 3567 / 3567 2468 / 2468 1046 / 1046 Output Total 1597 / 1597 3086 / 3086 1445 / 1445 Balance 1969 / 1969 -618 / -618 -399 / -399 Discharge Diet: Soft diet Discharge Activity: May not drive while taking narcotic pain medications. Additional Activity Instructions:: No showering until SASKIA drain is removed. Clean around drain with peroxide and keep covered with gauze. Change dressing daily. Empty at least daily and record drainage output. Call your doctor if your incision/area has: Continuous Slow Oozing, Sudden Increased Bleeding, Increased Pain/ Swelling, Increased Redness, Foul Smelling Discharge, Swelling at the incision site Call your doctor if you observe: Fever of 101 or Higher, Coldness, Increased Pain Suture Line Care: Avoid Pulling/Pushing, Avoid Pinching/Bending Remove Dressing in (days):: 3 - Remove plastic dressings in 3 days. Leave steri-strips in place. Cleanse incision/area with: Soap & Water Home Medications: Medications to take at Discharge Carbidopa/Levodopa 25/100 [Sinemet 25/100] 1 tab PO TID 08/27/18 Cholecalciferol (VIT D3) [Vitamin D] 1,000 unit PO DAILY 08/27/18 Digestive 8/L.acidoph/Pectin [Digestive Enzymes Tablet] 1 each PO ACHS 08/27/18 Hi Lipase Enzyme With Fatty Me 1 tab PO DAILY 08/27/18 Mens X- Action Reloaded 1 tab PO DAILY 08/27/18 Multivitamin with Minerals [Multiple Vitamin] 1 each PO DAILY 08/27/18 [place]-3 Fatty Acids/Fish Oil [Fish Oil 1,000 mg Capsule] 1 each PO DAILY 08/27/18 Testoplex Plus 1 tab PO DAILY 08/27/18 Vitamin B Complex 1 each PO DAILY 08/27/18 Omeprazole 40 mg PO DAILY #30 capsule. 08/30/18 Sucralfate [Carafate] 1 gm PO 4X/DAY #120 tablet 08/30/18 Following Prescrptions Were Given to Patient: Omeprazole 40 mg PO DAILY #30 capsule. Sucralfate [Carafate] 1 gm PO 4X/DAY #120 tablet Primary Care Physician: Gerald Winslow MD [Primary Care Provider] - Please Follow Up With: Mamadou Stevens MD - Please call [phone] When: Thursday; 09/03 Disposition: Home Minutes spent on discharge:: 20 Patient Condition:: Stable Medical Necessity - Tobacco Use Smoking Status: Never smoker Meaningful Use Info Meaningful Use Diagnoses (Choose all that apply): None applicable Code Visit Inpatient E&M: 24329 Disch Hosp - No charge
--- NOTE | 2018-08-30 15:18 | DS.PCM_ITS ---
Discharge Date and Diagnosis - Problem List Patient Problems: Active and Suspected Problems Epigastric abdominal pain of unknown etiology (Acute) Perforated abdominal viscus (Acute) Perforated duodenal bulb ulcer (Acute) Date of Admission: 08/27/18 Date of Discharge: 08/30/18 - Primary Discharge Diagnosis Active and Suspected Problems Epigastric abdominal pain of unknown etiology (Acute) Perforated abdominal viscus (Acute) Perforated duodenal bulb ulcer (Acute) Hospital Course and Treatment Imaging Results: 08/30/18 09:30 Upper GI Series Only [RAD] Urgent Operations: - - Exploratory laparoscopy and Som patch repair of duodenal bulb ulcer Summary of Care Provided: The patient is a 68 year old M who presented with 6 week history of progressively worsening abdominal pain. CT scan showed a perforated pneumoperitoneum anterior to the liver. Dr. Stevens performed an Exploratory laparoscopy and Som patch repair of duodenal bulb ulcer on 08/27/18. Patient tolerated the procedure well. He had an upper GI with Gastrografin on 08/30/18 which demonstrated no further duodenal leak. Upon discharge, patient notes very minimal amount of incisional discomfort. He is tolerating full liquids. He denies nausea, vomiting. Positive flatus, BM. Patient Problems: Active and Suspected Problems Epigastric abdominal pain of unknown etiology (Acute) Perforated abdominal viscus (Acute) Perforated duodenal bulb ulcer (Acute) - Physical Exam General: Alert, Oriented x3, Cooperative Abdomen: Bowel Sounds Present, Soft, Non Tender, - - Incisions c/d/i. No erythema or infection noted. Vital Signs Temp Pulse Resp BP Pulse Ox 97.7 F L 66 18 140/75 H 100 08/30/18 14:00 08/30/18 14:00 08/30/18 14:00 08/30/18 14:00 08/30/18 14:00 Oxygen Delivery Method Room Air Weight: 152 lb 8.958 oz Body Mass Index (BMI) 21.9 Intake and Output for Last 24 Hours 08/28/18 08/29/18 08/30/18 23:59 23:59 23:59 Intake Total 3567 / 3567 2468 / 2468 1046 / 1046 Output Total 1597 / 1597 3086 / 3086 1445 / 1445 Balance 1969 / 1969 -618 / -618 -399 / -399 Discharge Diet: Soft diet Discharge Activity: May not drive while taking narcotic pain medications. Additional Activity Instructions:: No showering until SASKIA drain is removed. Clean around drain with peroxide and keep covered with gauze. Change dressing daily. Empty at least daily and record drainage output. Call your doctor if your incision/area has: Continuous Slow Oozing, Sudden Increased Bleeding, Increased Pain/ Swelling, Increased Redness, Foul Smelling Discharge, Swelling at the incision site Call your doctor if you observe: Fever of 101 or Higher, Coldness, Increased Pain Suture Line Care: Avoid Pulling/Pushing, Avoid Pinching/Bending Remove Dressing in (days):: 3 - Remove plastic dressings in 3 days. Leave steri- strips in place. Cleanse incision/area with: Soap & Water Home Medications: Medications to take at Discharge Carbidopa/Levodopa 25/100 [Sinemet 25/100] 1 tab PO TID 08/27/18 Cholecalciferol (VIT D3) [Vitamin D] 1,000 unit PO DAILY 08/27/18 Digestive 8/L.acidoph/Pectin [Digestive Enzymes Tablet] 1 each PO ACHS 08/27/18 Hi Lipase Enzyme With Fatty Me 1 tab PO DAILY 08/27/18 Mens X- Action Reloaded 1 tab PO DAILY 08/27/18 Multivitamin with Minerals [Multiple Vitamin] 1 each PO DAILY 08/27/18 [place]-3 Fatty Acids/Fish Oil [Fish Oil 1,000 mg Capsule] 1 each PO DAILY 08/27/18 Testoplex Plus 1 tab PO DAILY 08/27/18 Vitamin B Complex 1 each PO DAILY 08/27/18 Omeprazole 40 mg PO DAILY #30 capsule. 08/30/18 Sucralfate [Carafate] 1 gm PO 4X/DAY #120 tablet 08/30/18 Following Prescrptions Were Given to Patient: Omeprazole 40 mg PO DAILY #30 capsule. Sucralfate [Carafate] 1 gm PO 4X/DAY #120 tablet Primary Care Physician: Gerald Winslow MD [Primary Care Provider] - Please Follow Up With: Mamadou Stevens MD - Please call [phone] When: Thursday; 09/03 Disposition: Home Minutes spent on discharge:: 20 Patient Condition:: Stable Medical Necessity - Tobacco Use Smoking Status: Never smoker Meaningful Use Info Meaningful Use Diagnoses (Choose all that apply): None applicable Code Visit Inpatient E&M: 17431 Disch Hosp - No charge
== END 2018-08-30 17:30 | disposition home or self-care (01) | DRG 331 ==
LOC: ED 07:09 → SDC 07:30 → AC 07:30 → MS3 09:23 → SDC 14:01 → MS3 14:02
PROVIDERS: Admitting Provider Surgery; Emergency Provider Emergency Medicine; Family Provider Family Medicine; PCP Family Medicine; Visit Provider Surgery
PROC: (CPT 49320; principal; 2018-08-27 07:15)
DX: K26.5 Chronic or unspecified duodenal ulcer with perforation (principal)
CPT/HCPCS: 36415; 74176; 74246; 80053; 83690; 85025; 99283; J7030; J7120; A4216; J2405

== ENCOUNTER 2018-10-18 09:29 | Day surgery (SDC) | payer MEDICARE, OTHER, SELFPAY ==
--- NOTE | 2018-10-13 04:03 | HP_ITS ---
Intake Vital Signs 10/13/18 Body Mass Index (BMI) 23.7 10/13/18 Height 5 ft 10 in 10/13/18 Weight: 150 lb 10/13/18 Body Mass Index (BMI) 21.5 10/13/18 Blood Pressure 124/74 H 10/13/18 Blood Pressure Location Rt brachial 10/13/18 Blood Pressure Position Sitting 10/13/18 Respiratory Rate 18 10/13/18 Pulse Rate 64 10/13/18 Pulse Source Monitor 10/13/18 Temperature 98.0 F 10/13/18 Temperature Source Oral 10/13/18 Pulse Ox 98 10/13/18 Oxygen Delivery Method room air Intake Visit Reasons: *Update H & P C-Scope Chief Complaint: ABDOMINAL PAIN [employer] Software Consultant Required: No Is patient in pain?: No Allergies No Known Allergies Allergy (Verified 10/13/18 09:10) Medications Carbidopa/Levodopa 25/100 [Sinemet 25/100] 1 tab PO TID 08/27/18 [History Confirmed 10/13/18] Cholecalciferol (VIT D3) [Vitamin D] 1,000 unit PO DAILY 08/27/18 [History Confirmed 10/13/18] Digestive 8/L.acidoph/Pectin [Digestive Enzymes Tablet] 1 ea PO ACHS 08/27/18 [History Confirmed 10/13/18] Hi Lipase Enzyme With Fatty Me 1 tab PO DAILY 08/27/18 [History Confirmed 10/13/18] Mens X- Action Reloaded 1 tab PO DAILY 08/27/18 [History Confirmed 10/13/18] Multivitamin with Minerals [Multiple Vitamin] 1 ea PO DAILY 08/27/18 [History Confirmed 10/13/18] Testoplex Plus 1 tab PO DAILY 08/27/18 [History Confirmed 10/13/18] Vitamin B Complex 1 ea PO DAILY 08/27/18 [History Confirmed 10/13/18] Omeprazole 40 mg PO DAILY #30 capsule. 08/30/18 [Rx Confirmed 10/13/18] PFSH Medical History Parkinson disease (Acute) Ulcer (Acute) Sleep apnea (Acute) Rheumatoid arthritis (Acute) Arthritis (Acute) Epigastric abdominal pain of unknown etiology (Acute) Perforated abdominal viscus (Acute) Perforated duodenal bulb ulcer (Acute) Surgical History Hx of colonoscopy (Acute) Hx of tonsillectomy (Acute) Hx of right inguinal hernia repair (Acute) Hx of cholecystectomy (Acute) Hx of laparoscopy (Acute) Family History Mother Arthritis Colon cancer Father Arthritis Hypertension Parkinson disease Social History (Updated 10/13/18 @ 16:03 by Megha Richards PA-C) Smoking Status: Never smoker second hand exposure: No alcohol intake: never substance use type: does not use caffeine: No what type of physical activity do you participate in: walking, other details: PT frequency: 1-2 times per week HPI HPI HPI: ANGELA TALLEY, is a 68 M who presents to the office today for HPI HPI Surgical H&P: Yes HPI: ANGELA TALLEY, is a 68 M who presents to the office today for an update history and physical for an upcoming EGD. Dr. Stevens had performed an exploratory laparoscopy and laparoscopic Som patch closure for a perforated duodenal ulcer on 08/27/18. Patient denies abdominal pain/discomfort. He has resumed normal diet. He notes bowel habits are normal. He has a history of Parkinson disease. He denies previous cardiac disease and pulmonary disease. ROS General General: No weight change, appetite, fatigue, colon cancer, breast cancer or weakness HEENT HEENT: No difficulty swallowing, eye injury, eye surgery, swollen glands or hoarseness Endo Endocrine: No thyroid disease, diabetes mellitus, thyroid cancer, Hair loss, heat intolerance or cold intolerance Skin Skin: Yes rash; no changing moles Breast Breast: No left breast lump, right breast lump, nipple discharge, breast pain, abnormal mammogram, abnormal US or breast enlargement Musc Musculoskeletal: Yes arthritis and rheumatoid arthritis; no back problems, gout or joint pain Cardio Cardiovascular: No murmur, pacemaker, heart disease, atrial fibrillation, high blood pressure, heart attack, heart stent, palpitations, shortness of breat with exertion or chest pain Psych Psychiatric: No depression, anxiety or hearing voices Resp Respiratory: No shortness of breath, Yes sleep apnea, No cough, No COPD, No asthma, No emphysema, No wheezing Gastro Gastrointestinal: No abdominal pain, No nausea or vomiting, No diarrhea, No constipation, No blood in stool, No acid reflux, No hemorrhoids, Yes ulcers, No gallbladder problem, No black,tarry stools Garry Hematologic: No blood thinners, No blood disorders, No bleeding, No anemia, No blood clots Neuro Neurologic: No system reviewed and no additional complaints, except as docu, No as per HPI, No abnormal walking, No abnormal hearing, No abnormal movements, No abnormal speech, No behavioral changes, No burning sensations, No confusion, No seizure-like activity, No unsteadiness, No dizziness, No localized weakness, No frequent falls, No headache(s), No lack of coordination, No loss of vision, No memory loss, No numbness, No other visual disturbances, No radiating pain, No restless legs, No sensory deficit, No fainting, No tingling, No tremor(s), No weakness, No other Exam Const General: cooperative, healthy appearing, comfortable, no acute distress HENMT Head: normal to inspection Eyes General: appearance normal, both eyes and all related structures Neck Neck: normal visual inspection Neck mass: No Chest Breast Palpation: No nipple discharge Resp Effort & Inspection: normal respiratory effort Auscultation: clear to auscultation bilaterally Cardio Rate: regular rate Rhythm: regular rhythm Heart Sounds: no murmurs GI Inspection: normal to inspection Palpation: soft Auscultation: normal bowel sounds Skin General: no rashes or lesions noted Neuro General: no focal motor deficits, CN's II-XI intact bilaterally Extrem General: normal to inspection Psych Appearance: grossly normal Affect: normal affect Assessment & Plan Problems 1. Perforated duodenal bulb ulcer K26.[address] Stevens will plan to perform an upper scope. Procedure details, risks and benefits have been discussed with the patient. Patient and his have had the opportunity to ask and have questions answered. Patient verbally understands and agrees with plan. Orders Orders: EGD Today K26.5 Coding Level of Care Code No Charge Diagnoses Perforated duodenal bulb ulcer K26.5 Comment Update H&P 10/13/18 4163 <Electronically signed by Megha guadarrama PA-C> Date _ Megha Richards PA-C I have re-examined the patient. There are no clinical changes since date of exam.
[2018-10-13 09:11] VITALS: BMI 23.7
[2018-10-18 09:41] VITALS: BP 121/86; PULSE 60; RESP 20; TEMP 36.7; O2SAT 100; BMI 22.5
--- NOTE | 2018-10-18 10:30 | IMM_PTH ---
PATIENT: ANGELA TALLEY LOC: EN U#:[id number] AGE/SX: 68/M ROOM: RE10/18/[address]: Dr. Mamadou Stevens MD : 1950 BED: DIS: 10/18/2018 SPEC #: [id number] RECD: 10/18/18 14:48 STATUS: RAMSESChung RECami #: [id number] CONOR: 10/18/18 10:[address]: Mamadou Stevens DEPT: IMMUNOHISTOCHEMISTRY RECD BY: Daphney Mac ENTERED: 10/18/18 14:48 SP TYPE: IMMUNO OTHR DR: Dr. Gerald Winslow MD Tissues: Stomach, NOS Procedures: H Pylori (initial) PHYSICIAN & INSTITUTION [place] [id number] SPECIMEN INFORMATION: Tissue Source: Antral biopsy Clinical Info: Recent duodenal bulb ulcer perforation Specimen Number: [id number] CPT code: 06367 METHODOLOGY: Deparaffinized sections of prefer/formalin-fixed tissue or PAP/DQ stained slides are incubated with monoclonal/polyclonal antibodies/oligonucleotide probes. Localization is made via biotin free immunoperoxidase method. Appropriate controls are performed and reacted as expected. Results on target cell population are indicated in the following table: RESULTS: ANTIBODY / CLONE RESULT H Pylori (polyclonal) negative These tests were developed and their performance characteristics determined by [facility]. They may not have been cleared or approved by the U.S. Food and Drug Administration. The FDA has determined that such clearance or approval is not necessary. INTERPRETATION: Antral biopsy: Negative for Helicobacter pylori organisms. PAUL:cara 10/19/18
--- NOTE | 2018-10-18 10:30 | EGD_PTH ---
PATIENT: ANGELA TALLEY LOC: EN U#:[id number] AGE/SX: 68/M ROOM: RE10/18/[address]: Dr. Mamadou Stevens MD : 1950 BED: DIS: 10/18/2018 SPEC #: [id number] RECD: 10/18/18 11:47 STATUS: LUCIA AALIYAH #: [id number] CONOR: 10/18/18 10:[address]: Mamadou Stevens DEPT: SURGICAL PATHOLOGY RECD BY: Jones Casanova ENTERED: 10/18/18 14:55 SP TYPE: EGD BIOPSY OT DR: Dr. Gerald Winslow MD Tissues: Gastric mucous membrane Procedures: Surgery Specimen Level IV HEADER OPERATION: EGD ([facility]) PRE-OP DIAGNOSIS: Recent duodenal bulb ulcer perforation TISSUE SUBMITTED: Antrum biopsy for histo and H. pylori MICROSCOPIC DIAGNOSIS Antral biopsy: Mild gastritis. See microscopic description and comment. SJ:cara 10/19/18 COMMENT The results of immunohistochemistry for Helicobacter pylori will be reported separately ([id number]). MICROSCOPIC DESCRIPTION Slides are reviewed. The specimen shows fragments of gastric mucosa with chronic inflammatory cell infiltrates in the lamina propria consisting of lymphocytes and plasma cells, consistent with mild chronic gastritis. Mucosal congestion is also noted. GROSS DESCRIPTION Received in fixative is one container labeled with the patient's name and designated antral biopsy. The specimen consists of one irregular fragment of light shrestha soft tissue that measures 0.3 x 0.3 x 0.1 cm. The specimen is totally submitted in one cassette. / PAUL:cara 10/18/18 TC:3 CPT: 13592
--- NOTE | 2018-10-18 10:32 | OP.ENDO_ITS ---
10/18/2018 Gerald Winslow [address] [place] [address] Re : Upper GI endoscopy procedure for Jamie Diaz Dear Dr. Winslow This procedure was performed on Thursday, October 18, 2018. My impressions and recommendations are as follows: Impressions : - Normal esophagus. - Normal stomach. Biopsied. - Normal examined duodenum. No specimens collected. Recommendations : - Discharge patient to home. - Resume previous diet. - Continue present medications. - Await pathology results. - Repeat upper endoscopy PRN for surveillance. - Return to my office in 1 week. My findings are described in the full procedure note, which is enclosed. If I can be of further assistance, please feel free to contact me at Doctor phone number(s): , Fax: [phone], Work: . Sincerely, MD Mamadou Cardoza MD 10/18/2018 10:32:19 AM This report has been signed electronically.
[2018-10-18 10:35] VITALS: BP 107/71; BP 121/86; PULSE 63; RESP 16; TEMP 36.6; O2SAT 97
[2018-10-18 10:40] VITALS: BP 111/66; BP 121/86; PULSE 57; RESP 16; O2SAT 98
[2018-10-18 10:45] VITALS: BP 117/76; BP 121/86; PULSE 54; RESP 16; O2SAT 98
[2018-10-18 10:50] VITALS: BP 121/76; BP 121/86; PULSE 54; RESP 16; TEMP 36.8; O2SAT 98
[2018-10-18 11:01] VITALS: BP 121/86
== END 2018-10-18 11:10 | disposition home or self-care (01) ==
LOC: EN 09:30 → AC 09:31
PROVIDERS: Family Provider Family Medicine; PCP Family Medicine; Referring Provider Surgery; Visit Provider Surgery
PROC: 0DJ08ZZ Inspection of Upper Intestinal Tract, Via Natural or Artificial Opening Endoscopic (ICD-10-PCS; CPT 43235; principal; 2018-10-18 10:25)
DX: K29.70 Gastritis, unspecified, without bleeding (principal); Z87.19 Personal history of other diseases of the digestive system; G20 Parkinson's disease; G47.30 Sleep apnea, unspecified; M06.9 Rheumatoid arthritis, unspecified; M19.90 Unspecified osteoarthritis, unspecified site; G25.81 Restless legs syndrome; K21.9 Gastro-esophageal reflux disease without esophagitis; Z90.49 Acquired absence of other specified parts of digestive tract; Z79.899 Other long term (current) drug therapy
CPT/HCPCS: 43239; 88305; 88342; J7120; J2405

== ENCOUNTER 2018-10-29 10:00 | Outpatient (RCR) | payer MEDICARE, OTHER, SELFPAY ==
--- NOTE | 2018-08-20 11:20 | HP.PTEVAL_ITS ---
Patient's Visit Information ANGELA TALLEY is a 68 year old M referred to Physical Therapy by Carlin Wynn MD with a diagnosis of PD and gait and balance. Date of Evaluation: 08/20/18 Physical Therapist: CHLOE Stringer - Visit Plan Frequency: 2x /Week Duration: 2 Months Plan: 1-2X/ week for 8 weeks for balance activities, gait training, functional activities, dual tasking activities with HEP - Subjective Findings: He was diagnosed last Thursday with PD. This has been going on for a long time and was just confirmed on Thursday. Over the last 20 years he has had some shakiness and weakness in his voice and [place] [employer]. He is having trouble with walking and balance. He describes it as having stiffness in both legs... he has sat around for a couple of months this winter he has lost a lot in his legs. 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 As far as balance he does not have feeling on his L side/foot (L side worse than the R). He has fallen... he has trouble on uneven ground or catching his toes. He catches himself a lot. He has fallen to the ground at least 1X/ month. He falls more out on the uneven ground. No back pain or stiffness. He feels that his legs are good. Stairs: most of the time he uses the rail and he goes recip. Sit to stand; able to get up without using his arms. Still driving. He is sleeping ok. - Objective Gait: Walks with decrease coordination on the L LE, SBOS with eversion of B heels, occ scissoring, decreased L arm swing and decreased trunk rotation. LE MMT: B hip flex 4+/5, B hip abd 4+/5, B hip ext 4/5, B knee flex and knee ext 4/5, Pt is able to walk on heels with 1/2 normal ROm and can not walk on toes very well. FGA: 17. Pt has hindfoot eversion.....question for orthotics....for ankle instability - Balance Scores Functional Gait Assessment Score: 17 % Disability: 43.3400 - Goals Goal 1:: I HEP Goal Time Frame: 4-6 Weeks Goal 2:: Increase functional balance by increasing FGA score by 4 points to decrease fall risk (at time of eval17) Goal Time Frame: 4-6 Weeks Goal 3:: Walk with more smoother gait pattern Goal Time Frame: 4-6 Weeks - Rehabilitation Potential Rehabilitation Potential: Good - Anticipated Interventions Patient/Client Instruction: Educate patient on: Condition For the Purpose of:: To improve muscle performance and motor function, To improve ability to perform ADL's, To increase tolerance to activity/condition/position, To improve performance and independence with ADL's, To decrease level of supervision to perform tasks, To improve gait and locomotor functions, To increase flexibility/ROM Therapeutic Exercise to Include: Strength training, Endurance training, Balance training, Postural training, Flexibilty training, Gait and locomotor training, Neuromotor development, Active ROM For the Purpose of:: To improve muscle performance and motor function, To improve ability to perform ADL's, To increase tolerance to activity/condition/position, To improve performance and independence with ADL's, To decrease level of supervision to perform tasks, To improve ability of physical actions for home/community/work/leisure, To improve gait and locomotor functions, To improve health of tissue, To increase flexibility/ROM, To improve balance Functional Training to Include: Gait training For the Purpose of:: To improve gait and locomotor functions Thank you for the opportunity to evaluate your patient. For Medicare and Medicare HMO plans, please review the plan of care and approve it. It will need to be FAXED BACK to us at [phone] for Medicare purposes. For Medicare only, by signing this I certify the plan of care. Please let me know if there are questions or concerns regarding this plan of care. Physician Signature: Date:
--- NOTE | 2018-10-01 09:28 | HP.PTREVAL_ITS ---
aCrlin Wynn MD, It has been my pleasure to treat ANGELA TALLEY over the last 10 visits for PD and gait and balance. Please see the progress note below for an update on the physical therapy plan of care! Subjective: Pt feels unsteady. He feels that the braces are helping. He feels that he is doing a little better and the braces help a great bit. He still struggles with ankle strength. He is doing heel and toe raises and orange 4 way ankle exercises at home. He feels that he needs more PT. Objective/Function: FGA: 17. Gait: Walks with decreased damon time on the L side. FGA: LE MMT: B hip flex 4-/5, L hip and 4-/5 and R hip abd 4/5, L hip ext 3+/5 and R 4-/5, B knee ext 4/5 and B knee felx 4/5. B ankle DF 3+/5, B ankle PF 3-/5, B ankle INV/ EV 3+/5. Stairs: Pt has some weakness ascending and descending stairs with the L LE. He does veer due to balance as well but able to go up and down recip without a handrail and some veering. Curb steps: trouble with balance descending the step. Turning 180 degrees increase stepping out to catch balance Plan Plan: See the pt 2X/ week for 3 additional weeks for hip strength, ankle strength, high level balance such as turn 180 degrees and curb steps etc. Goals are to give green band to pt for ankle strength at [place] and hopefully get him in DTD class. Goals Goal 1:: I HEP Goal Time Frame: 4-6 Weeks Goal Progress: Goal Met Goal 2:: Increase functional balance by increasing FGA score by 4 points to decrease fall risk (at time of eval17) Goal Time Frame: 4-6 Weeks Goal Progress: Progressing Goal 3:: Walk with more smoother gait pattern Goal Time Frame: 4-6 Weeks Goal Progress: Progressing Goal 4:: Increase hip strength by 1/2 muscle grade ( at time of re-eval: LE MMT: B hip flex 4-/5, L hip and 4-/5 and R hip abd 4/5, L hip ext 3+/5 and R 4- /5, B knee ext 4/5 and B knee felx 4/5. B ankle DF 4-/5, B ankle PF 4/5, B ankle INV/ EV 4-/ Anticipated Interventions Patient/Client Instruction: Educate patient on: Condition For the Purpose of:: To improve muscle performance and motor function, To improve ability to perform ADL's, To increase tolerance to activity/co ndition/position, To improve performance and independence with ADL's, To decrease level of supervision to perform tasks, To improve gait and locomotor functions, To increase flexibility/ROM Therapeutic Exercise to Include: Strength training, Endurance training, Balance training, Postural training, Flexibilty training, Gait and locomotor training, Neuromotor development, Active ROM For the Purpose of:: To improve muscle performance and motor function, To improve ability to perform ADL's, To increase tolerance to activity/condition/position, To improve performance and independence with ADL's, To decrease level of supervision to perform tasks, To improve ability of physical actions for home/community/work/leisure, To improve gait and locomotor functions, To improve health of tissue, To increase flexibility/ROM, To improve balance Functional Training to Include: Gait training For the Purpose of:: To improve gait and locomotor functions Please do not hesitate to contact me at [phone] by phone or if you have questions or concerns regarding this new plan of care! Sincerely, Cheryle Joel MPT
--- NOTE | 2018-10-29 11:01 | HP.PTDCSUM_ITS ---
HP - PT D/C Summary It has been my pleasure to treat ANGELA TALLEY under orders from Carlin Wynn MD, for the diagnosis of PD and gait and balance for a total of 15 visit(s). Discharge Date: 10/29/18 Please see the following information for a summary of their discharge status. - Subjective Subjective: Pt had questions about HEP and about his braces and to wear all the time, even at home. - Overall Improvement % Improvement: 15 - Objective Objective/Function: Gait: walks with decreased heel strike, increase flexion of the knees. FGA: 17/5. LE MMT: L hip flex 4/5 and R 4+/5, L hip abd 4/5 and R 4+/5, L knee ext/flexion 4/5 and R knee ext/flexion 4+/5 - Goals Goal 1:: I HEP Goal Progress: Goal Met Goal 2:: Increase functional balance by increasing FGA score by 4 points to decrease fall risk (at time of eval17) Goal Progress: Progressing Goal 3:: Walk with more smoother gait pattern Goal Progress: Progressing Goal 4:: Increase hip strength by 1/2 muscle grade ( at time of re-eval: LE MMT: B hip flex 4-/5, L hip and 4-/5 and R hip abd 4/5, L hip ext 3+/5 and R 4- /5, B knee ext 4/5 and B knee felx 4/5. B ankle DF 4-/5, B ankle PF 4/5, B ankle INV/ EV 4-/ Goal Progress: Goal Met - Plan Plan: DC PT... - D/C Information Discharge Comments: DC PT If there are questions or concerns regarding this patient's physical therapy, please feel free to call me at [phone]. Thank you for the referral of this patient. Sincerely, Cheryle Joel, MPT
== END 2018-10-29 19:00 | disposition home or self-care (01) ==
LOC: PT 10:00
PROVIDERS: Family Provider Family Medicine; PCP Family Medicine; Referring Provider Psychiatry & Neurology Neurology; Visit Provider Psychiatry & Neurology Neurology
DX: G20 Parkinson's disease (principal)
CPT/HCPCS: 97110; 97161; 97530

== ENCOUNTER → 2018-12-22 08:57 | Outpatient (CLI) | payer MEDICARE, OTHER, SELFPAY ==
--- NOTE | 2018-12-22 13:05 | NEURO_ITS ---
NCS and/or EMG Patient Report Ordering Doctor: Garima Bentley DATE OF SERVICE: 12/22/18 Jamie Diaz is a 68-year-old male who presents for electrodiagnostic testing of the lower limbs. He reports progressive weakness in the lower limbs over the past several months. He reports difficulty with walking and is now using ankle braces and a cane. He does report a recent diagnosis of Parkinson's disease. Electrodiagnostic findings: The left peroneal motor nerve demonstrates prolonged distal latency with reduced amplitude. A proximal response could not be obtained. Right peroneal motor nerve demonstrates normal distal latency with reduced amplitude and normal conduction velocity. There is significant r eduction of peroneal amplitude on the left side compared to the right. The left tibial motor nerve demonstrates normal distal latency with reduced amplitude. Right tibial motor nerve demonstrates mildly prolonged distal latency with normal amplitude. Mildly reduced tibial conduction velocities noted bilaterally. Prolonged tibial F waves are noted bilaterally. Peroneal F waves could not be obtained. Prolonged H reflex noted bilaterally. Prolonged sural latency is noted bilaterally. Normal superficial peroneal and medial plantar responses. Needle EMG testing reveals 1+ fibrillations bilaterally in the tibialis anterior with decreased recruitment. 1+ fibrillations also noted in the right peroneus longus and right gastrocnemius with a decreased recruitment pattern. No denervation noted in the lumbar paraspinals. There are no fasciculations noted. Electrodiagnostic impression: This is an abnormal study in the lower limbs. 1. Electrodiagnostic findings suggestive of peripheral polyneuropathy, motor greater than sensory. There is evidence of axonal loss, more prominent on the left side. The etiology of this condition is uncertain, but would recommend a neuropathy work-up 2. There is no electrodiagnostic evidence for demyelinating disease or lumbosacral radiculopathy.
== END ==
PROVIDERS: Family Provider Family Medicine; PCP Family Medicine; Referring Provider Nurse Practitioner Family; Visit Provider Nurse Practitioner Family
DX: G62.9 Polyneuropathy, unspecified (principal); R29.898 Other symptoms and signs involving the musculoskeletal system
CPT/HCPCS: 95886; 95912

== ENCOUNTER → 2018-12-23 15:20 | Outpatient (CLI) | payer MEDICARE, OTHER, SELFPAY ==
[2018-12-23 16:04] LABS: Absolute Lymphocyte Count 1.08 X10^3/uL (0.83-4.51); Absolute Neutrophil Count 2.6 X10^3/uL (2.0-7.7); Basophil# 0.06 X10^3/uL; Basophil% 1.3 % (0-1); Eosinophil# 0.21 X10^3/uL; Eosinophils% 4.6 % (0-5); Hematocrit 45.6 % (40-54); Hemoglobin 15.1 g/dL (13.0-16.5); Lymphocyte # 1.08 X10^3/ul (4.0); Lymphocyte % 23.5 % (19-41); Mean Corp Hgb Conc 33.1 g/dL (32-36); Mean Corpuscular Hgb 31.1 pg (27.0-32.0); Mean Corpuscular Volume 93.8 fL (80-94); Mean Platelet Vol. 9.8 fl (6.2-12.0); Monocyte% 13.1 % (0-10); NRBC Flagged by Analyzer 0 % (0-5); Neutrophil # 2.63 X10^3/uL (2.7-7.7); Neutrophil % 57.3 % (47-70); Platelet Count 162 K/mm3 (150-450); RBC Distribution Width CV 12.8 % (11.6-14.6); RBC Distribution Width SD 43.9 fl (35.1-43.9); Red Blood Count 4.86 M/mm3 (4.6-6.2); White Blood Count 4.6 K/mm3 (4.4-11.0)
[2018-12-23 16:30] LABS: Erythrocyte Sedimentation Rate 2 mm/hr (0-20)
[2018-12-23 16:58] LABS: Vitamin B12 1013 pg/mL (211-911)
[2018-12-23 17:02] LABS: ALB/GLOB Ratio 1.1 RATIO (0.9-2.4); AST(SGOT) 51 U/L (15-37); Alanine Aminotransfer ALT/SGPT 32 U/L (16-61); Albumin, Serum 3.7 g/dL (3.2-5.0); Alkaline Phosphatase 82 U/L (45-117); Anion Gap 7 (5-15); BUN 25 mg/dL (7-18); BUN/Creat Ratio 22.3 RATIO (10-20); Bilirubin, Direct 0.22 mg/dL (0.00-0.30); CRP < 2.90 mg/L (0.0-3.0); Calcium,Total 8.5 mg/dL (8.5-10.1); Chloride 108 mmol/L (98-107); Creatinine, Serum 1.12 mg/dL (0.70-1.30); EST Glomerular Filtration Rate 69 mL/min (>60); Est Glom Filt Rate - Afr Amer 83 mL/min (>60); Globulin 3.5 g/dL (2.2-4.2); Glucose 123 mg/dL (74-106); Potassium 4.1 mmol/L (3.5-5.1); Protein, Total 7.2 g/dL (6.4-8.2); Sodium Level 143 mmol/L (136-145); Thyroid Stim Hormone (TSH) 3.54 uIU/mL (0.358-3.74)
[2018-12-28 16:34] LABS: PROEL- A/G Ratio 1.3 (0.7-1.7); PROEL- Albumin 3.9 g/dL (2.9-4.4); PROEL- Alpha-1 Globulin 0.2 g/dL (0.0-0.4); PROEL- Alpha-2 Globulin 0.6 g/dL (0.4-1.0); PROEL- Beta Globulin 0.9 g/dL (0.7-1.3); PROEL- Gamma Globulin 1.2 g/dL (0.4-1.8); PROEL- TOTAL PROTEIN 6.9 g/dL (6.0-8.5); PROELU- Albumin, Urine 28.2 % (.); PROELU- Alpha-1-Globulin,Ur 2.6 % (.); PROELU- Alpha-2-Globulin,Ur 11.2 % (.); PROELU- Beta Globulin, Ur 32.2 % (.); PROELU- Gamma Globulin, Ur 25.8 % (.)
== END ==
PROVIDERS: Family Provider Family Medicine; PCP Family Medicine; Referring Provider Nurse Practitioner Family; Visit Provider Nurse Practitioner Family
DX: G62.9 Polyneuropathy, unspecified (principal); Z79.899 Other long term (current) drug therapy
CPT/HCPCS: 36415; 80053; 82248; 82607; 84165; 84166; 84443; 85025; 85652; 86140

== ENCOUNTER 2019-02-02 12:00 | Outpatient (RCR) | payer MEDICARE, OTHER, SELFPAY ==
--- NOTE | 2019-01-04 14:02 | HP.PTEVAL ---
Patient's Visit Information ANGELA TALLEY is a 68 year old M referred to Physical Therapy by BAILEE CarusoC with a diagnosis of Neuropathy and PD. Date of Evaluation: 01/04/19 Physical Therapist: CHLOE Stringer - Visit Plan Frequency: 2x /Week Duration: 4 Weeks Plan: Test Pt on the NeuroCOM. Set goals if needed according to deficits if present. See the pt 2X/ week for 4 weeks and then reassess for gait training, LE strengthening, balance activities with HEP. Pt may need a script for AFO's that will help to give DF support so he does not trip on his feet. In the meantime pt will go back to where he got the braces and see if they can make it into an AFO for more DF support. - Subjective Findings: Pt reports that he is getting weaker and Garima GORMAN said all they are going to do is treat symptoms. Pt went to a chiropractor and he is going to look at his CT scan and see if he can see anything on that and if not then he will get an x-ray of his LB. There is a spot in his spine that he gets pain if he bends over. He is noticing the weakness with standing and gettin up from a chair and stairs. And standing for long periods of time. He just got his B foot braces about 2 months ago. The braces are supportive but does not prevent him from Plantarflexion. - Objective Gait: Walks with increased knee flexion, increase B foot slap, increase veering, decreased stride length with a walking stick and uses occ to regain balance. FGA: 9. TU seconds and pt has poor balance and uses a walking stick. LE MMT: B hip flex 4-/5, R hip abd 4-/5 and L hip abd 3+/5, B knee ext 4/5, B knee flex 4-/5, Pt is able to 3/4 ROM bridge. ANkle MMT: B DF 3+/5, B PF 4-/5. Sit to stand: Able to get out of the chair without using his UE to help. Stairs: Pt is holding onto 1 rail recip but did catch toe on the step and did catch self with hand rail. - Balance Scores Functional Gait Assessment Score: 9 % Disability: 70.0000 - Goals Goal 1:: I HEP Goal Time Frame: 4-6 Weeks Goal 2:: Increase FGA by 5 points to decrease fall risk. Goal Time Frame: 4-6 Weeks Goal 3:: Be able to walk with heel to toe gait pattern with less flexion of the knees using a walking stick if needed for safety. Goal Time Frame: 4-6 Weeks Goal 4:: Test pt on the NeuroCOM Goal Time Frame: 4-6 Weeks - Anticipated Interventions Patient/Client Instruction: Educate patient on: Condition, Plan of Care For the Purpose of:: To improve muscle performance and motor function, To improve ability to perform ADL's, To increase tolerance to activity/condition/position, To improve performance and independence with ADL's, To improve ability of physical actions for home/community/work/leisure, To improve gait and locomotor functions, To increase flexibility/ROM, To improve endurance, To improve balance, To improve safety with gait Therapeutic Exercise to Include: Strength training, Endurance training, Balance training, Postural training, Flexibilty training, Gait and locomotor training, Passive ROM, Active ROM For the Purpose of:: To improve muscle performance and motor function, To improve ability to perform ADL's, To increase tolerance to activity/condition/position, To improve performance and independence with ADL's, To improve ability of physical actions for home/community/work/leisure, To improve gait and locomotor functions, To increase flexibility/ROM, To improve balance, To improve safety with gait Functional Training to Include: Gait training For the Purpose of:: To improve gait and locomotor functions, To improve safety with gait Thank you for the opportunity to evaluate your patient. For Medicare and Medicare HMO plans, please review the plan of care and approve it. It will need to be FAXED BACK to us at [phone] for Medicare purposes. For Medicare only, by signing this I certify the plan of care. Please let me know if there are questions or concerns regarding this plan of care. Physician Signature: Date:
--- NOTE | 2019-01-19 16:40 | HP.PTCOM_ITS ---
PT Communication Note 01/19/[address] Garima Bentley, CRAB FISHERMAN-C , Thank you for the referral of Jamie Diaz to our clinic. He was tested on our [employer]it[employer] System and enclosed are the patients test results. On the Sensory Organization Test (SOT) his overall composite score was below age related norms. He did have some problems with the use of his vestibular system to help him maintain his balance. His strategy analysis is more ankle dominant which is higher level and his center of gravity is more posterior. On the Motor Control Test, the patients overall reaction time was decreased for someone of his age group. On the Limits of Stability Test, the pt had decrease ability to weight shift in all directions and actually lost his balance in all directions except backwards. At this point in time we will work on balance with vestibular inputs and weight shifting. Sincerely, CHLOE Stringer Contact Information
--- NOTE | 2019-02-02 12:57 | HP.PTREVAL ---
Garima Bentley, VITA-C, It has been my pleasure to treat ANGELA TALLEY over the last 9 visits for Neuropathy and PD. Please see the progress note below for an update on the physical therapy plan of care! Subjective: Pt reports that he is tired today. He reports that the most dangerous part of his day is getting dressed cause if his arm gets stuck in the sleeve, he can't catch himself. Objective/Function: L hip flex 23.9#. R hip flex 24.3#. L knee ext 28.7#. R knee ext 48.4#. L knee ext 54.7#. L hip abd 32.9#. R hip abd 38.0#. L hip ext 35.3#. R hip ext 30.7#. Lshld flex 23.1#. R shlf flex 26.6#. Pt was very challenged standing on foam with dynamic balance Plan Plan: See pt 1X/ every 2-3 weeks to check strength gains. Pt to come into [facility] and work on the machines xoompark and some exercises at home. Goals Goal 1:: I HEP Goal Time Frame: 4-6 Weeks Goal Progress: Goal Met Goal 2:: Increase FGA by 5 points to decrease fall risk. Goal Time Frame: 4-6 Weeks Goal 3:: Be able to walk with heel to toe gait pattern with less flexion of the knees using a walking stick if needed for safety. Goal Time Frame: 4-6 Weeks Goal 4:: Test pt on the NeuroCOM Goal Time Frame: 4-6 Weeks Goal Progress: Goal Met Anticipated Interventions Patient/Client Instruction: Educate patient on: Condition, Plan of Care For the Purpose of:: To improve muscle performance and motor function, To improve ability to perform ADL's, To increase tolerance to activity/condition/position, To improve performance and independence with ADL's, To improve ability of physical actions for home/community/work/leisure, To improve gait and locomotor functions, To increase flexibility/ROM, To improve endurance, To improve balance, To improve safety with gait Therapeutic Exercise to Include: Strength training, Endurance training, Balance training, Postural training, Flexibilty training, Gait and locomotor training, Passive ROM, Active ROM For the Purpose of:: To improve muscle performance and motor function, To improve ability to perform ADL's, To increase tolerance to activity/condition/position, To improve performance and independence with ADL's, To improve ability of physical actions for home/community/work/leisure, To improve gait and locomotor functions, To increase flexibility/ROM, To improve balance, To improve safety with gait Functional Training to Include: Gait training For the Purpose of:: To improve gait and locomotor functions, To improve safety with gait Please do not hesitate to contact me at [phone] by phone or if you have questions or concerns regarding this new plan of care! Sincerely, Cheryle Joel, MPT
--- NOTE | 2019-04-04 16:30 | HP.PTDCSUM ---
HP - PT D/C Summary It has been my pleasure to treat ANGELA TALLEY under orders from Garima Bentley, NERI, for the diagnosis of Neuropathy and PD for a total of 9 visit(s). Discharge Date: 04/04/19 Please see the following information for a summary of their discharge status. - Subjective Subjective: Pt reports that he is tired today. He reports that the most dangerous part of his day is getting dressed cause if his arm gets stuck in the sleeve, he can't catch himself. - Overall Improvement % Improvement: 0 - Objective Objective/Function: L hip flex 23.9#. R hip flex 24.3#. L knee ext 28.7#. R knee ext 48.4#. L knee ext 54.7#. L hip abd 32.9#. R hip abd 38.0#. L hip ext 35.3#. R hip ext 30.7#. Lshld flex 23.1#. R shlf flex 26.6#. Pt was very challenged standing on foam with dynamic balance - Goals Goal 1:: I HEP Goal Progress: Goal Met Goal 2:: Increase FGA by 5 points to decrease fall risk. Goal 3:: Be able to walk with heel to toe gait pattern with less flexion of the knees using a walking stick if needed for safety. Goal 4:: Test pt on the NeuroCOM Goal Progress: Goal Met - Plan Plan: See pt 1X/ every 2-3 weeks to check strength gains. Pt to come into [facility] and work on the machines Lynette and some exercises at home. - D/C Information Discharge Comments: DC PT to I machines If there are questions or concerns regarding this patient's physical therapy, please feel free to call me at [phone]. Thank you for the referral of this patient. Sincerely, Cheryle Joel, MPT
== END 2019-02-02 19:00 | disposition home or self-care (01) ==
LOC: PT 12:00
PROVIDERS: Family Provider Family Medicine; PCP Family Medicine; Referring Provider Nurse Practitioner Family; Visit Provider Nurse Practitioner Family
DX: G62.9 Polyneuropathy, unspecified (principal); G20 Parkinson's disease
CPT/HCPCS: 97110; 97162; 97530; 97750

== ENCOUNTER → 2019-04-12 09:31 | Outpatient (CLI) | payer MEDICARE, OTHER, SELFPAY ==
--- NOTE | 2019-04-12 09:34 | RAD_ITS ---
Procedure: Dedicated upper GI/esophagram. Fluoroscopically guided including frontal and lateral cine evaluation of the larynx/pharynx region. Exam is further augmented with 12 mm barium pill. INDICATIONS: Dysphasia with pressure in throat x2-3 weeks. History of Parkinson''s and muscle degeneration disease. TECHNIQUE: The patient easily and readily swallowed effervescent crystals, a barium pill and various density barium contrast. Multiple spot images and cine images were obtained during the course of the real-time exam. FINDINGS: Esophageal motility appears unremarkable. There is no esophageal stricture, web, diverticulum or hiatal hernia. No free reflux was observed during the course of the real-time exam. The esophageal mucosal pattern appears unremarkable. There is no intrinsic or extrinsic esophageal mass or mass effect. The 12 mm barium pill passed easily without delay into the stomach. There is symmetric transit of the contrast bolus on frontal and lateral views through the larynx/pharynx region. No diverticulation is identified. The mucosal pattern appears unremarkable. No stricture or narrowing. No intrinsic or extrinsic mass or mass effect. There is a small quantity of vestibular penetration and minimal chance aspiration. RAD/Esophagus Only IMPRESSION: Unremarkable esophagus. Vestibular penetration and minimal to mild chance aspiration. Fluoroscopy time 1.19 minutes. Electronically Signed: Roverto Argueta MD at 11:09 EST , Service support ,
== END ==
PROVIDERS: Family Provider Family Medicine; PCP Family Medicine; Referring Provider Physician Assistant; Visit Provider Physician Assistant
DX: R13.12 Dysphagia, oropharyngeal phase (principal)
CPT/HCPCS: 74220

== ENCOUNTER → 2019-05-11 13:49 | Outpatient (CLI) | payer MEDICARE, OTHER, SELFPAY ==
--- NOTE | 2019-05-11 13:50 | RAD_ITS ---
STUDY: SWALLOWING STUDY REASON FOR EXAM: Male, 69 years old. DYSPHAGIA TECHNIQUE: The examination was performed with Speech Pathology in attendance. Under fluoroscopic observation, the patient ingested thin barium, thick barium, barium pudding, and barium coated cracker. FLUOROSCOPY TIME: 2:23 minutes/seconds. [id number] images were obtained. RADIOLOGIST INVOLVEMENT: Radiologist was present and providing direct supervision. COMPARISON: None. FINDINGS: The following was observed during swallowing of the various mixtures of barium: Thin Barium: Silent aspiration with ingestion of thin liquids. Thick Barium: There was no evidence of aspiration or laryngeal penetration. Barium Pudding: There was no evidence of aspiration or laryngeal penetration. Barium Coated Cracker: There was no evidence of aspiration or laryngeal penetration. RAD/Swallowing Function w/Video IMPRESSION: Silent aspiration with ingestion of thin liquids. The swallow study findings were discussed with the patient by the speech pathologist at the conclusion of the examination. Please see speech pathology report for more information and recommendations. Electronically Signed: Cody Corrales, at 14:39 EST , Service support ,
--- NOTE | 2019-05-11 14:00 | SP.MBSS_ITS ---
PRIMARY / SECONDARY DIAGNOSIS: dysphagia (R13.10) REFERRING PHYSICIAN: NERI Caruso CURRENT DIET: regular textures, thin liquids DENTITION: WFL MENTAL STATUS: sufficient for participation RESPIRATORY STATUS: O2 via room air REASON FOR REFERRAL: The Patient is a 69 year old male referred for a modified barium swallow (MBS) study to objectively assess the Patients oropharyngeal swallow function under fluoroscopy to fully assess PO intake tolerance, with chance aspiration noted during 04/12/2019 upper GI series. MEDICAL HISTORY: Parkinson disease, Sjogren?s syndrome, Gilbert's Syndrome, ulcer, sleep apnea, rheumatoid arthritis, epigastric abdominal pain, perforated abdominal viscus, perforated duodenal bulb ulcer, status post tonsillectomy PREVIOUS MODIFIED BARIUM SWALLOW STUDY: None ADDITIONAL OBJECTIVE ASSESSMENT RESULTS: 04/12/2019 upper GI series revealed an unremarkable esophagus; vestibular penetration and minimal to mild chance aspiration. 08/30/2018 upper GI series revealed an unremarkable examination. ASSESSMENT PARAMETERS: The Patient participated in a Modified Barium Swallow (MBS) study on 05/11/2019. Dr. Corrales was the radiologist present for this evaluation. This study was recorded in the lateral view and images were sent to PACs for storage. Scoring was completed through each trial using the 8-point Penetration-Aspiration Scale (PAS) and the Videofluoroscopic Scale Score (VSS), and summarized via the Videofluoroscopic Dysphagia Scale (VDS) and the Bolus Residue Scale (BRS), with severity scoring through the Dysphagia Severity Rating Scale (DSRS) and the Swallowing Performance Scale (SPS), and recommended diet textures through the International Dysphagia Diet Standardisation Initiative (IDDSI). RESULTS OF THE EVALUATION: The Patient presents with moderate pharyngeal dysphagia (DSRS: 4; SPS: 5) with grade III overt and grade IV SILENT aspiration of thin liquids secondary to the diagnosis of Parkinson?s disease OBJECTIVE ASSESSMENT OF SWALLOW FUNCTION (QUANTITATIVE ? PER TRIAL): PENETRATION / ASPIRATION SCALE (MARES): 1 = does not enter airway 2 = enters airway/above vocal folds/ejected 3 = enters airway/above vocal folds/not ejected 4 = enters airway/contacts vocal folds/ejected 5 = enters airway/contacts vocal folds/not ejected 6 = enters airway/below vocal folds/ejected 7 = enters airway/below vocal folds/not ejected despite effort 8 = enters airway/below vocal folds/no effort VIDEOFLOROSCOPIC SCALE SCORE (MARES): Grade I = aspiration of material that has penetrated into the laryngeal vestibule, intact cough reflex Grade II = aspiration < 10 % of the bolus, intact cough reflex Grade III = aspiration of < 10 % of the bolus, reduced cough reflex or aspiration of > 10 % of the bolus, intact cough reflex Grade IV = aspiration of > 10 % of the bolus, reduced cough reflex PENETRATION / ASPIRATION SCALE (SCORE) WITH VIDEOFLOROSCOPIC SCALE SCORE: Thin liquid - 5 mL tsp.: 1 Thin liquids via cup (single sip): 7 ? Grade III Thin liquids via straw (chin tuck): 1 Thin liquids via straw (chin tuck): 2 Thin liquids via straw (chin tuck): 5 Pudding via spoon: 1 Regular textured cookie: 1 Thin liquids via straw (chin tuck): 5 Thin liquids via straw (chin tuck): 2 Thin liquids via straw (chin tuck): 8 ? Grade IV [place] thickened liquids via cup (single sip): 1 [place] thickened liquids via cup (single sip): 1 [place] thickened liquids via cup (single sip): 1 OBJECTIVE ASSESSMENT OF SWALLOW FUNCTION (QUANTITATIVE ? AGGREGATE): VIDEOFLOROSCOPIC DYSPHAGIA SCALE (VDS): LIP CLOSURE: 0 (of 4) Intact BOLUS FORMATION: 0 (of 6) Intact MASTICATION: 0 (of 8) Intact APRAXIA: 0 (of 4.5) None TONGUE TO PALATE CONTACT: 0 (of 10) Intact PREMATURE BOLUS LOSS: 0 (of 4.5) None ORAL TRANSIT TIME: 0 (of 3) < 1.5s TRIGGERING OF PHARYNGEAL SWALLOW: 0 (of 4.5) Normal VALLECULAR RESIDUE: 4 (of 6) 10-50% LARYNGEAL ELEVATION: 9 (of 9) Impaired PYRIFORM SINUS RESIDUE: 4.5 (of 13.5) <10% COATING OF PHARYNGEAL WALL: 9 (of 9) Yes PHARYNGEAL TRANSIT TIME: 0 (of 6) <1.0s ASPIRATION: 12 (of 12) Subglottic aspiration BOLUS RESIDUE SCALE (BRS): 4 (of 6) residue in valleculae and piriforms OBJECTIVE ASSESSMENT OF SWALLOW FUNCTION (SEVERITY GRADING): DYSPHAGIA SEVERITY RATING SCALE (DSRS): 4 (moderate) SWALLOWING PERFORMANCE SCALE (SPS): 5 (moderate) OBJECTIVE ASSESSMENT OF SWALLOW FUNCTION (QUALITATIVE): ORAL PREPARATORY PHASE: competent bolus manipulation with fragmented swallowing (piecemeal deglutition); sufficient anterior oral containment during oral manipulation; preserved management of breathing / bolus formation ORAL TRANSITIONAL PHASE: no presence of transitional incompetence; no lingual discoordination (no tremor / undulations); sufficient oral containment across textures with no presence of premature posterior bolus loss; PHARYNGEAL PHASE: no signs of pharyngeal dyssynchrony; reduced hyolaryngeal excursion and duration with insufficient laryngeal vestibule pressure generated to completely expel penetrated material; mild / moderate pharyngeal dysmotility most prominently with more viscous textures with consolidation within the vallecula and to a lesser extent the pyriforms; no signs of velopharyngeal impairments; prandial aspiration with thin liquids without a consistent cough response, no penetration / aspiration throughout trials of more viscous textures (nectar, semisolids, solids) ESOPHAGEAL PHASE: no obvious esophageal phase abnormalities observed. CONTRIBUTING / COMPLICATING FACTORS AND NOTABLE FINDINGS: weak and inefficient volitional and responsive cough intensity generated to expel penetrated material / tracheobronchial aspiration (dystussia). RESPONSE TO STRATEGIES: all deficits managed successfully with a combination of reduced bolus rate / volume adjustments, and diet texture / viscosity adjustments; no demonstrated benefit with execution of the chin tuck posture DYSPHAGIA ASSOCIATED MEDICAL CONSIDERATIONS / INTERVENTION CONSIDERATIONS: The Patient was noted to both overtly and SILENTLY aspirate with thin liquids, with clinical assessment at bedside relying on identification of classic overt signs and symptoms of aspiration considered unreliable. I would discourage clinical advancement past nectar thickened liquids without completion of a repeat modified barium swallow study due to the presence and extent of aspirate identified that was SILENT in nature. I would consider a repeat modified barium swallow study within 4 - 8 weeks (if clinically appropriate) to further assess the presence and extent of silent and overt aspiration prior to advancement to a less restrictive diet. I would additionally consider annual repeat objective assessment of the oropharyngeal swallow function under fluoroscopy to identify changes in the oropharyngeal swallow function associated with Parkinson?s disease due to the progressive nature of the disease and higher proclivity for silent aspiration. I would consider the Patient to be at a higher risk of aspiration related medical complications / aspiration pneumonia / aspiration related pulmonary syndrome secondary to the diagnosis of Parkinson?s disease, the presence of dysphagia, the extensive pharyngeal phase impairment, the presence and extent of SILENT aspiration identified under fluoroscopy, the potential for tracheobronchial aspiration of more dense viscosities, compromised airway defenses with respect to his impaired volitional and responsive cough intensity (dystussia), his advanced age, and his impaired ambulatory status, with no guarantee of prolonged tolerance of nectar thickened liquids. I would consider this Patient to be a high risk for malnutrition and dehydration due to the extent of recommended liquid viscosity adjustments, and the related negative impact on palatability / intake pleasure / quality of life and anticipated smaller PO intake quantities, higher risk for early satiety with recommended thicker viscosities, and reduced rate of intake with slower viscosities, the presence of neurogenic comorbidities (up to 30% of neurological patients with dysphagia present or are at risk of malnutrition), the Patients advancing age (up to 55% of frail older patients with dysphagia present or are at risk of malnutrition), and the significance of dysphagia. The Patient may require intervention to reduce the risk of malnutrition, with considerations for food enrichment, oral nutritional supplementation. I would consider a referral to a registered clinical dietitian. I would consider implementation of the [place] Free Water Protocol (FFWP) following Patient and family education if deemed clinically appropriate, and if strict and aggressive oral care is provided, with annual dental care is provided by a licensed dental hygienist and assessment completed via licensed dentist to promote optimal levels of oral health. I would consider the Patent to be at a higher risk of oropharyngeal colonization with respiratory pathogens secondary to the Patient?s advancing age, xerostomia associated with the diagnosis of Sjogren?s syndrome, anticipated impairments in salivary clearance that accompanies the diagnosis of Parkinson?s disease as the diseases progresses. Aspiration of saliva contaminated with pathogens can lead to pulmonary infections, with creation, implementation, and adherence to an aggressive oral and dental care program is essential. I would continue to recommend an aggressive oral care program that includes pre-rinse use prior to water intake; routine oral care in the a.m., prior to oral intake, after oral intake, and prior to bed via toothbrush and rinse, use of oral moisturizers as needed to reduce impact of xerostomia, and frequent dental checkups. I would consider the Patients quality of life if the Patient and Patient?s family request advancement to less restrictive diet due to the progressive nature of the Patient?s disorders, ONLY if all parties comprehend the severity of the Patient?s swallow deficits and concomitant medical complications associated with silent aspiration; otherwise a follow up Modified Barium Swallow study is indicated prior to advancement to thin liquids. INTERVENTION RECOMMENDATIONS AND CONSIDERATIONS: The Patient requires continued skilled speech-language intervention targeting diet texture management and training / implementation of recommended compensatory strategies; training and implementation of a home oral care protocol to reduce the effects of xerostomia and improve / maintain the integrity of the oral mucosa reducing the risk of aspiration related pulmonary complications; training, implementation, and Patient / caregiver education regarding implementation of the [place] Free Water Protocol (FFWP) as clinically appropriate; Patient and caregiver education regarding dysphagia associated with Parkinson?s disease / Sjogren?s syndrome; and Patient / caregiver training targeting meal preparation / thickened liquid preparation. I would consider training and implementation of oropharyngeal strengthening exercises to facilitate improved oropharyngeal strength and coordination, though significant improvements are unlikely due to the attributed etiology of the Patients swallow deficit. 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 POST ASSESSMENT EDUCATION: Results and recommendations were discussed with the Patient immediately following MBS completion, with the Patient verbalizing understanding and agreement with all recommendations and education provided. DIET TEXTURE RECOMMENDATIONS: Will recommend a regular ? soft textured (IDDSI: 6), nectar thickened liquid (IDDSI: 2) diet RECOMMENDED COMPENSATORY STRATEGIES: Consider cutting tougher textures into bite sized pieces, reduced bolus volume / rate of ingestion, liquid chaser at reasonable intervals, seated upright at 90 degrees during PO intake, remain upright for 30-60 minutes post meal (GERD precaution), medications one at a time with a liquid chaser. IMAGE COUNT: [id number] Victorino Peoples M.A., ISAI-DENTAL NURSE, CBIS MBSImP Certified, LSVT Certified [facility] Speech-Language Pathology Department [email or web address]
== END ==
LOC: RAD 13:50
PROVIDERS: PCP Physician Assistant; Referring Provider Nurse Practitioner Family; Visit Provider Nurse Practitioner Family
DX: G20 Parkinson's disease (principal); M35.00 Sjogren syndrome, unspecified; R13.12 Dysphagia, oropharyngeal phase
CPT/HCPCS: 74230; 92611

== ENCOUNTER 2019-06-13 13:30 | Outpatient (RCR) | payer MEDICARE, OTHER, SELFPAY ==
--- NOTE | 2019-05-03 09:40 | HP.SP.AD ---
History - History Date of Eval: 05/03/19 Medical Diagnosis (from RX): Parkinsons. Date of Onset of Diagnosis: June 2018 Previous speech therapy: Yes Other Relevant Medical History/Diagnoses/Surgery: Tremors, Sjoren's syndrome, ZAIRA, Gilbert's Syndrome, Medications related to this diagnosis: Carbadopa/ levadopa x4 daily. IGG therapy 5 days once a month, gabapentin, hydroxychloroquine, prilosec. Smoking Status: Never smoker Hx Smoking: No Hx Tobacco Use: No Hx Smoking Exposure: No - Pain Is pain an issue with your current prescribed condition?: No - Personal Occupation: Retired Right Hearing Abillity: Normal Left Hearing Abillity: Normal Visual Assistive Devices: Glasses Patients Living Arrangements: With Significant Other Patient Allergies - Allergies Allergies No Known Allergies Allergy (Verified 11/01/18 13:48) Subjective Voice - Other Product Usage Do you take Vitamin C Supplements (if yes, list amt (mg)/day: Yes Objective Voice - Date of Diagnosis Previous Speech Therapy (If yes, describe): No - Medications Familiar with on/off effect: No - Implantation Deep brain implantation (If yes, answer next question): No - Objective data Objective Data: Objective data: Sound pressure level (SPL acoustic correlation of vocal loudness) was measured with a sound level meter at a distance of 40 cm from the patient's mouth. Average conversational loudness is 70-80 dB and sustained phonation duration is 15 to 20 seconds for a typical adult. Sustained Phonation Intensity (dB SPL): 71 Sustained Phonatin duration (seconds): 11.6 Is the individual stimulable to increase vocal intensity: Yes - Acoustic Analysis Acoustic Analysis: These results represent reading and conversational decibel levels that may significantly reduce speech intelligibility and communicative effectiveness. Amplitude Intensity Conversational (Average) in dB SPL: 63 Other Impressions - Comments ENT -: Patient reported that he has seen an ENT and they scoped him. He reported that there are no growths on his vocal cords but they do not come together all the way unless he puts more effort than average speaking. Plan - Plan Plan: Speech therapy is recommended for decreased volume which is impacting his overall ability to effectively communciate in all settings. Recommend an MBS as his barium swallow study reported penetration. - Recommendations MBS: Yes Treatment Warranted: Yes - Frequency Frequency: 1x/Week Duration: 6 Weeks Visits in this POC: 6 - Prognosis Prognosis: Good - Goals that are Established: Determination:: Goals will be added/modified as deemed necessary and appropriate. Therapy will be discontinued when results of re-evaluation indicate therapy is no longer needed or lack of progress has been documented. - Goal #1-5 Goal #1: Patient will increase vocal loudness to reach a target sound pressure level of 75 dB DIRECTOR OF ASSESSING with 1 cue during reading at the word and sentence level, which will help increase vocal respiratory support for functional communication. Goal #2: Patient will increase vocal loudness to reach a target sound pressure level of 70 dB DIRECTOR OF ASSESSING with 1 cue during conversation for functional communication. Goal #3: Patient will sustain phonation for 15-20 seconds to increase vocal respiratory support required for functional communication. Goal #4: MBS with dysphagia goals added at that time as appropriate. Education - Patient has Indicated that the Following Identified Educational Needs: None The Patient has indicated that they have no educational or learning abilities that may effect their care.: Yes - Patient Instruction Patient Education: Diagnosis, Treatment Plan, Goals Person Taught: Patient, Significant Other Teaching Method: Discussion Response to teaching: Verbalize understanding
--- NOTE | 2019-05-03 10:50 | HP.PTEVAL_ITS ---
Patient's Visit Information ANGELA TALLEY is a 69 year old M referred to Physical Therapy by FRANCISCO JAVIER MAJANO with a diagnosis of neuropathy, gait instability, PD, general weakness. Date of Evaluation: 05/03/19 Physical Therapist: CHLOE Stringer - Visit Plan Frequency: 1x/Week Duration: 2 Months Plan: 1X/ week for 8 weeks for LE strengthening, balance and gait mechanics, light endurance exercises with HEP (give first few visits so that pt can do stre ngthening at home on a daily basis). - Subjective Findings: Pt reports that now his speech is affected and the L side of his tounge does not want to work and L arm is weak now too. reports that he is walking bent knees and more shuffling. They increased his PD meds and plaquin and prednizone and fosamax to counteract the prednizone and gabapetin. He has sjogeren syndrome SSB (muscle wasting)... and PD. He does not sleep at night..... he might nap during the day. Current symptoms: Trouble with walking, hard to do the stairs, can hardly stand long enough to stand to shave, helps him in and out of the shower with a shower chair. Basically he sits in a chair all day. Has a stationary bike and free weights that he is able to do at home. - Objective Gait: walks with a rollator with flexed knees, decreased DF, decreased reciprical step length. LE MMT: B hip flex 3-/5, B knee ext 3+/5, R knee flex 4/5 and L knee flex 3+/5, B hip abd 4-/5, 3/4 normal ROM bridge. Standing balance... stands unsupported for 10 seconds with head turns horizotnal and 3 seconds with vertical head turns. Needs UE support with all transfers...... - Goals Goal 1:: I HEP Goal Time Frame: 4-6 Weeks Goal 2:: Increase LE MMT by 1/2 muscle grade (at time of eval: LE MMT: B hip flex 3-/5, B knee ext 3+/5, R knee flex 4/5 and L knee flex 3+/5, B hip abd 4- /5, 3/4 normal ROM bridge). Goal Time Frame: 4-6 Weeks Goal 3:: Be able to walk with more upright posture during treatment sessions and less flexion of B knees Goal Time Frame: 4-6 Weeks - Rehabilitation Potential Rehabilitation Potential: Good - Anticipated Interventions Patient/Client Instruction: Educate patient on: Condition, Plan of Care For the Purpose of:: To improve nutrient delivery to tissue, To improve muscle performance and motor function, To improve ability to perform ADL's, To increase tolerance to activity/condition/position, To improve ability of physical actions for home/community/work/leisure, To improve gait and locomotor functions, To decrease soft tissue restriction, To increase flexibility/ROM, To improve balance, To improve safety with gait Therapeutic Exercise to Include: Strength training, Balance training, Postural training, Flexibilty training, Gait and locomotor training, Active ROM For the Purpose of:: To improve nutrient delivery to tissue, To improve muscle performance and motor function, To improve ability to perform ADL's, To increase tolerance to activity/condition/position, To improve performance and independence with ADL's, To decrease level of supervision to perform tasks, To improve ability of physical actions for home/community/work/leisure, To improve gait and locomotor functions, To improve health of tissue, To increase flexibility/ROM, To improve endurance, To improve balance, To improve safety with gait, To improve safety Functional Training to Include: Gait training For the Purpose of:: To improve gait and locomotor functions, To improve safety with gait, To improve safety Manual Therapy Techniques to Include: Passive ROM For the Purpose of:: To increase ROM Thank you for the opportunity to evaluate your patient. For Medicare and Medicare HMO plans, please review the plan of care and approve it. It will need to be FAXED BACK to us at [phone] for Medicare purposes. For Medicare only, by signing this I certify the plan of care. Please let me know if there are questions or concerns regarding this plan of care. Physician Signat ure: Date:
--- NOTE | 2019-08-15 14:55 | HP.PT.NRP ---
ANGELA TALLEY was seen in my office for initial evaluation on 05/03/19. The following Plan of Care was established for this patient: Initial Frequency: 1x/Week Initial Duration: 2 Months Patient/Client Instruction: Educate patient on: Condition, Plan of Care For the Purpose of:: To improve nutrient delivery to tissue, To improve muscle performance and motor function, To improve ability to perform ADL's, To increase tolerance to activity/condition/position, To improve ability of physical actions for home/community/work/leisure, To improve gait and locomotor functions, To decrease soft tissue restriction, To increase flexibility/ROM, To improve balance, To improve safety with gait Therapeutic Exercise to Include: Strength training, Balance training, Postural training, Flexibilty training, Gait and locomotor training, Active ROM For the Purpose of:: To improve nutrient delivery to tissue, To improve muscle performance and motor function, To improve ability to perform ADL's, To increase tolerance to activity/condition/position, To improve performance and independence with ADL's, To decrease level of supervision to perform tasks, To improve ability of physical actions for home/community/work/leisure, To improve gait and locomotor functions, To improve health of tissue, To increase flexibility/ROM, To improve endurance, To improve balance, To improve safety with gait, To improve safety Functional Training to Include: Gait training For the Purpose of:: To improve gait and locomotor functions, To improve safety with gait, To improve safety Manual Therapy Techniques to Include: Passive ROM For the Purpose of:: To increase ROM This patient was last seen in our office 05/15/19. Pertinent comments regarding their Physical therapy will appear below: DC PT. Pt is not appropriate for PT at this time per his MD. At this point I will be discontinuing this patient from physical therapy. I would be happy to see this patient again in the future if found appropriate by the physician. Thank you! Cheryle Joel, MPT
== END 2019-06-13 19:00 | disposition home or self-care (01) ==
LOC: PT 13:30
PROVIDERS: PCP Physician Assistant; Referring Provider Nurse Practitioner Family
DX: G62.9 Polyneuropathy, unspecified (principal); G20 Parkinson's disease; R47.89 Other speech disturbances; R13.12 Dysphagia, oropharyngeal phase; R49.0 Dysphonia; M35.00 Sjogren syndrome, unspecified; R53.1 Weakness
CPT/HCPCS: 92507; 92524; 92526; 97110; 97162; 97530

== ENCOUNTER 2019-09-26 13:41 | Outpatient (RCR) | payer MEDICARE, OTHER, SELFPAY ==
[2019-09-26 14:37] LABS: Absolute Lymphocyte Count 1.11 X10^3/uL (0.83-4.51); Absolute Neutrophil Count 3.9 X10^3/uL (2.0-7.7); Basophil# 0.06 X10^3/uL; Eosinophil# 0.28 X10^3/uL; Eosinophils% 4.6 % (0-5); Hematocrit 46.6 % (40-54); Hemoglobin 15.3 g/dL (13.0-16.5); Lymphocyte # 1.11 X10^3/ul (4.0); Lymphocyte % 18.3 % (19-41); Mean Corp Hgb Conc 32.8 g/dL (32-36); Mean Corpuscular Hgb 32.8 pg (27.0-32.0); Mean Corpuscular Volume 99.8 fL (80-94); Monocyte# 0.68 X10^3/uL; Monocyte% 11.2 % (0-10); NRBC Flagged by Analyzer 0 % (0-5); Neutrophil # 3.93 X10^3/uL (2.7-7.7); Neutrophil % 64.7 % (47-70); Platelet Count 199 K/mm3 (150-450); RBC Distribution Width CV 13.1 % (11.6-14.6); RBC Distribution Width SD 47.4 fl (35.1-43.9); Red Blood Count 4.67 M/mm3 (4.6-6.2); White Blood Count 6.1 K/mm3 (4.4-11.0)
[2019-09-26 14:46] LABS: ALB/GLOB Ratio 1.1 RATIO (0.9-2.4); AST(SGOT) 35 U/L (15-37); Alanine Aminotransfer ALT/SGPT 73 U/L (16-61); Albumin, Serum 3.8 g/dL (3.2-5.0); Alkaline Phosphatase 96 U/L (45-117); Anion Gap 5 (5-15); BUN 16 mg/dL (7-18); BUN/Creat Ratio 17.4 RATIO (10-20); Calcium,Total 9.2 mg/dL (8.5-10.1); Chloride 106 mmol/L (98-107); Creatinine, Serum 0.92 mg/dL (0.70-1.30); EST Glomerular Filtration Rate 87 mL/min (>60); Est Glom Filt Rate - Afr Amer 105 mL/min (>60); Globulin 3.6 g/dL (2.2-4.2); Glucose 88 mg/dL (74-106); Potassium 4.1 mmol/L (3.5-5.1); Protein, Total 7.4 g/dL (6.4-8.2); Sodium Level 142 mmol/L (136-145)
== END 2019-09-26 18:00 | disposition home or self-care (01) ==
LOC: HHLAB 13:41
PROVIDERS: PCP Physician Assistant; Referring Provider Psychiatry & Neurology Neurology; Visit Provider Psychiatry & Neurology Neurology
DX: G12.21 Amyotrophic lateral sclerosis (principal)
CPT/HCPCS: 80053; 85025

== ENCOUNTER 2019-11-18 10:12 | Day surgery (SDC) | payer MEDICARE, OTHER, SELFPAY ==
[2019-11-09 13:43] VITALS: BMI 22.5
--- NOTE | 2019-11-13 06:21 | HP_ITS ---
Intake Vital Signs 11/09/19 BP 147/82 H 11/09/19 Blood Pressure Location Rt brachial 11/09/19 Position Sitting 11/09/19 Respiration 18 11/09/19 Pulse 82 11/09/19 Pulse Source Monitor 11/09/19 Temp 98.3 F 11/09/19 Temp Source Temporal 11/09/19 Pulse Oximetry (%) 95 11/09/19 Oxygen Delivery Method room air Intake Visit Reasons: Dysphagia Chief Complaint: dysphagia/PEG Tube Axle Polisher Required: No Accompanied by: Is patient in pain?: No Allergies meloxicam Adverse Reaction (Verified 11/10/19 12:14) Upset Stomach Medications Multivitamin with Minerals [Multiple Vitamin] 1 ea PO DAILY 08/27/18 [History Confirmed 11/10/19] ascorbic acid (vitamin C) 500 mg capsule 250 mg PO TID cap 11/09/19 [History Confirmed 11/10/19] creatine monohydrate 5,000 mg oral powder packet 5 gm PO DAILY ea 11/09/19 [History Confirmed 11/10/19] hydroxychloroquine 200 mg tablet 200 mg PO DAILY 11/09/19 [History Confirmed 11/10/19] lactobacillus combination no.9 4 billion cell capsule 4,000 mmu cells PO BID cap 11/09/19 [History Confirmed 11/10/19] omega-3 fatty acids 100 mg chewable tablet 50 mg PO BID tab 11/09/19 [History Confirmed 11/10/19] omeprazole 40 mg capsule,delayed release 20 mg PO DAILY cap 11/09/19 [History Confirmed 11/10/19] riluzole 50 mg tablet 50 mg PO Q12H 11/09/19 [History Confirmed 11/10/19] selenium 200 mcg capsule 200 mcg PO DAILY 11/09/19 [History Confirmed 11/10/19] vitamin E (dl, acetate) 400 unit capsule 400 unit PO DAILY 11/09/19 [History Confirmed 11/10/19] Alpha Lipoic Acid 600 mg PO DAILY 11/10/19 [History Confirmed 11/10/19] Cholecalciferol (Vitamin D3) [Vitamin D3] 1,250 mcg PO DAILY 11/10/19 [History Confirmed 11/10/19] FOR[facility]LY [facility] Medical History Parkinson disease (Acute) Ulcer (Acute) Sleep apnea (Acute) Rheumatoid arthritis (Acute) Arthritis (Acute) Epigastric abdominal pain of unknown etiology (Acute) Perforated abdominal viscus (Acute) Perforated duodenal bulb ulcer (Acute) ALS (amyotrophic lateral sclerosis) (Acute) Dysphagia (Acute) Gastritis (Acute) History of back problems (Acute) Surgical History Hx of colonoscopy (Acute) Hx of tonsillectomy (Acute) Hx of right inguinal hernia repair (Acute) Hx of cholecystectomy (Acute) Hx of laparoscopy (Acute) History of esophagogastroduodenoscopy (EGD) (Acute ~10/18/18) History of wisdom tooth extraction (Acute) history muscle biopsy (Acute) Family History Mother Arthritis Colon cancer Father Arthritis Hypertension Parkinson disease Social History (Updated 11/13/19 @ 18:[address] Mamadou Stevens MD) Smoking Status: Never smoker second hand exposure: No alcohol intake: never substance use type: does not use caffeine: No what type of physical activity do you participate in: walking, other details: PT frequency: 1-2 times per week HPI HPI Surgical H&P: Yes HPI: ANGELA TALLEY, is a 69 M who presents to the office today for Evaluation for PEG tube. Patient was recently diagnosed with ALS. His swallowing has been greatly affected. And he is in need of having a PEG tube placed. ROS General General: No weight change, appetite, fatigue, colon cancer, breast cancer or weakness HEENT HEENT: Yes difficulty swallowing; no eye injury, eye surgery, swollen glands or hoarseness Endo Endocrine: No thyroid disease, diabetes mellitus, thyroid cancer, Hair loss, heat intolerance or cold intolerance Skin Skin: Yes rash; no changing moles Breast Breast: No left breast lump, right breast lump, nipple discharge, breast pain, abnormal mammogram, abnormal US or breast enlargement Musc Musculoskeletal: Yes back problems and arthritis; no rheumatoid arthritis, gout or joint pain Cardio Cardiovascular: No murmur, pacemaker, heart disease, atrial fibrillation, high blood pressure, heart attack, heart stent, palpitations, shortness of breat with exertion or chest pain Psych Psychiatric: No depression, anxiety or hearing voices Resp Respiratory: Yes shortness of breath, Yes sleep apnea, No cough, No COPD, No asthma, No emphysema, No wheezing Gastro Gastrointestinal: No abdominal pain, No nausea or vomiting, No diarrhea, No constipation, No blood in stool, No acid reflux, No hemorrhoids, Yes ulcers, No gallbladder problem, No black,tarry stools Garry Hematologic: No blood thinners, No blood disorders, No bleeding, No anemia, No blood clots Neuro Neurologic: No system reviewed and no additional complaints, except as docu, No as per HPI, No abnormal walking, No abnormal hearing, No abnormal movements, No abnormal speech, No behavioral changes, No burning sensations, No confusion, No seizure-like activity, No unsteadiness, No dizziness, No localized weakness, No frequent falls, No headache(s), No lack of coordination, No loss of vision, No memory loss, Yes numbness, No other visual disturbances, No radiating pain, No restless legs, No sensory deficit, No fainting, Yes tingling, No tremor(s), No weakness, No other Exam Const General: no acute distress, well developed, well hydrated Orientation: oriented to person, oriented to place, oriented to time [facility] Head: normocephalic, atraumatic Ears: external ears normal Mouth: moist mucous membranes Eyes Sclera: sclerae normal Pupils: normal by confrontation Neck Neck: no lymphadenopathy noted Neck mass: No Thyroid: thyroid normal, symmetrical Chest Chest palpation & inspection: normal inspection of the chest Breast Palpation: No nipple discharge Resp Effort & Inspection: normal respiratory effort Auscultation: clear to auscultation bilaterally Percussion: percussion normal Cardio Rate: regular rate Rhythm: regular rhythm Heart Sounds: no murmurs GI Palpation: soft, no hepatosplenomegaly, no masses, nontender Rectal Exam: other Other: Rectal exam deferred. Extrem General: normal to inspection, no clubbing, cyanosis or edema Assessment & Plan 1. Oropharyngeal dysphagia R13.12 Plan I have discussed the above with the patient. I have offered the patient esophagogastroduodenoscopy With placement of a percutaneous endoscopic gastrostomy tube. I have explained the risks/benefits of the procedure and described the procedure. I have discussed the risks with the patient, including but not limited to: infection, bleeding, perforation of the GI tract requiring emergency surgery, inability to complete the procedure, injury to any internal organs, complications of anesthesia, etc. - the patient understands and agrees to proceed. I have answered all the patient's questions to the patient's satisfaction and the patient has no further questions. The patient has been given instructions for the colon cleansing preparation. Plan Detail Other Orders Orders: Peg Tube 11/09/19 Coding Level of Care Code Off vis,est,level 3 Diagnoses Oropharyngeal dysphagia R13.12 ??Dysphagia type: oropharyngeal phase COVID (Procedure Consent) Procedure Criteria Procedure Criteria: Yes Elective The surgeon/proceduralist and patient have discussed in detail the risk of exposure to and/or potential harm posed by the COVID-19 virus with having a surgery/procedure at this time versus the risk of? delaying the surgery/procedure. It is not possible to know either the risk of delaying the surgery or procedure or chance of getting an infection with perfect accuracy, but a joint decision was made between the patient and the surgeon/proceduralist ?to proceed at this time with the scheduled surgery/procedure as indicated on the consent form. 11/13/19 4131 <Electronically signed by Mamadou stephen MD> Date _ Mamadou Stevens MD I have re-examined the patient. There are no clinical changes since date of exam.
[2019-11-18] VITALS (7 sets, daily range): BP systolic 112–152; BP diastolic 76–94; PULSE 67–85; RESP 16; TEMP 36.1–37; O2SAT 95–97; BMI 19.6
[2019-11-18] MEDS: Lactated Ringers 1,000 ML 100 ML IV (10:47)
--- NOTE | 2019-11-18 11:29 | OP.EGD_ITS ---
Patient Name: Jamie Diaz Procedure Date: 11/18/2019 10:48 AM Date of : 1950 Age: 69 Procedure: Upper GI endoscopy Indications: Oropharyngeal phase dysphagia Providers: Mamadou Stevens MD Referring MD: Aixa Darnell Medicines: See the Anesthesia note for documentation of the administered medications Patient Profile: This is a 69 year old male. Refer to note in patient chart for documentation of history and physical. Complications: No immediate complications. Procedure: Pre-Anesthesia Assessment: - Prior to the procedure, a History and Physical was performed, and patient medications and allergies were reviewed. The patient's tolerance of previous anesthesia was also reviewed. The risks and benefits of the procedure and the sedation options and risks were discussed with the patient. All questions were answered, and informed consent was obtained. Prior Anticoagulants: The patient has taken no previous anticoagulant or antiplatelet agents. ASA Grade Assessment: III - A patient with severe systemic disease. After reviewing the risks and benefits, the patient was deemed in satisfactory condition to undergo the procedure. After obtaining informed consent, the endoscope was passed under direct vision. Throughout the procedure, the patient's blood pressure, pulse, and oxygen saturations were monitored continuously. The gastroscope was introduced through the mouth, and advanced to the duodenal bulb. The upper GI endoscopy was accomplished without difficulty. The patient tolerated the procedure well. Scope In: 11:13:42 AM Scope Out: 11:21:04 AM Total Procedure Duration Time 0 hours 7 minutes 22 seconds Findings: The examined esophagus was normal. The entire examined stomach was normal. The in the duodenum was normal. The entire examined stomach was normal. Placement of an externally removable PEG with no T-fasteners was successfully completed. The external bumper was at the 4.0 cm marking on the tube. Estimated blood loss was minimal. Impression: - Normal esophagus. - Normal stomach. - Normal. - Normal stomach. - An externally removable PEG placement was successfully completed. - No specimens collected. Recommendation: - Discharge patient to home. - Resume previous diet. - Continue present medications. - Repeat upper endoscopy PRN for surveillance. - Return to my office in 1 week. Procedure Code(s): --- Professional --- 08187, Esophagogastroduodenoscopy, flexible, transoral; with directed placement of percutaneous gastrostomy tube Diagnosis Code(s): --- Professional --- R13.12, Dysphagia, oropharyngeal phase CPT copyright 2017 [employer]. All rights reserved. The codes documented in this report are preliminary and upon finance and administration manager review may be revised to meet current compliance requirements. MD Mamadou Cardoza MD 11/18/2019 11:29:12 AM This report has been signed electronically. Number of Addenda: 0 Note Initiated On: 11/18/2019 10:48 AM
--- NOTE | 2019-11-18 11:30 | OP.CCLET_ITS ---
11/18/2019 Aixa Darnell Re : Upper GI endoscopy procedure for Jamie Diaz Dear Mann This procedure was performed on Monday, November 18, 2019. My impressions and recommendations are as follows: Impressions : - Normal esophagus. - Normal stomach. - Normal. - Normal stomach. - An externally removable PEG placement was successfully completed. - No specimens collected. Recommendations : - Discharge patient to home. - Resume previous diet. - Continue present medications. - Repeat upper endoscopy PRN for surveillance. - Return to my office in 1 week. My findings are described in the full procedure note, which is enclosed. If I can be of further assistance, please feel free to contact me at Doctor phone number(s): , Fax: [phone], Work: . Sincerely, MD Mamadou Cardoza MD 11/18/2019 11:29:12 AM This report has been signed electronically.
--- NOTE | 2019-11-18 12:01 | SUR.PHASEII ---
PEG TUBE TEACHING AND DEMONSTRATION REVIEWED WITH , NANY. AWAITING TIRE REPAIR MECHANIC CONSULTATION PRIOR TO D/C HOME.
== END 2019-11-18 13:35 | disposition home or self-care (01) ==
LOC: EN 10:12 → AC 10:13
PROVIDERS: Anesthesiology; PCP Physician Assistant; Referring Provider Physician Assistant; Visit Provider Surgery
PROC: 0DJ08ZZ Inspection of Upper Intestinal Tract, Via Natural or Artificial Opening Endoscopic (ICD-10-PCS; CPT 43235; principal; 2019-11-18 10:55)
DX: Z43.1 Encounter for attention to gastrostomy (principal); R13.12 Dysphagia, oropharyngeal phase; G12.21 Amyotrophic lateral sclerosis; Z11.59 Encounter for screening for other viral diseases; G20 Parkinson's disease; M06.9 Rheumatoid arthritis, unspecified; K21.9 Gastro-esophageal reflux disease without esophagitis; G47.33 Obstructive sleep apnea (adult) (pediatric); Z79.899 Other long term (current) drug therapy
CPT/HCPCS: 43246; 87635; 94799; 97802; J7120; U0003

== ENCOUNTER 2020-03-07 18:11 | Emergency (ER) | payer MEDICARE, OTHER, SELFPAY ==
[2019-11-18 10:42] VITALS: BMI 19.6
[2020-03-07 18:12] VITALS: BP 138/83; PULSE 101; RESP 16; TEMP 36.7; O2SAT 94; BMI 22.8
--- NOTE | 2020-03-07 18:40 | EKG12_ITS ---
Test Reason : ASTHMA Blood Pressure : / mmHG Vent. Rate : 093 BPM Atrial Rate : 093 BPM P-R Int : 158 ms QRS Dur : 094 ms QT Int : 342 ms P-R-T Axes : 038 011 029 degrees QTc Int : 425 ms Normal sinus rhythm Incomplete right bundle branch block Borderline ECG Confirmed by MIHIR REESE, REYNALDO ([id number]), supervising editor news reel SHAYLA RASCON ([id number]) on 03/09/2020 11:10:02 AM Referred By: RADHA Confirmed By:REYNALDO ASH MD
--- NOTE | 2020-03-07 18:41 | ED.DCSUM_ITS ---
History of Present Illness Chief Complaint: Allergic Reaction Narrative: Patient is a 70-year-old male who presents with a cough. For the past 5 days he has had congestion with postnasal drainage. Patient does have a history of ALS. He has difficulty swallowing. He intermittently aspirates. Family is concerned he may be aspirating on the drainage. He also has had a low-grade fever of about 100. No nausea or vomiting but has had some loose stools. He does have a cough. He feels mildly short of breath. No vomiting. 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 Family states it usually turns bronchitis. Patient has been in communication with their physician and patient has been using a nebulizer and was also started on loratadine and a steroid nasal spray. Today he had a severe coughing fit where he turned purple. They spoke to the primary care physician who was unable to see the patient in person and could not do a virtual visit until Thursday so they were advised just to be evaluated here in the emergency department. Past Medical History - Allergies and Home Meds Allergies/Adverse Reactions: Allergies meloxicam Adverse Reaction (Verified 03/07/20 18:16) Upset Stomach EROSION OF STOMACH/ULCER/PERFORATION Primary Care Physician: Aixa Darnell PA [Primary Care Provider] - Past Medical History: - - ALS Surgical History: cholecystectomy Smoking Status: Never smoker - Family History Maternal Family History: Family History (Last Reviewed 11/13/19 @ 18:[address] Mamadou Stevens MD) Mother Arthritis Colon cancer Father Arthritis Hypertension Parkinson disease Family History: Reports: No pertinent history Review of Systems All systems negative except as indicated General: Reports: Fever ENT: Reports: - - Congestion Cardiovascular: Denies: Chest pain Respiratory: Reports: Dyspnea, Cough Gastrointestinal: Reports: Diarrhea. Denies: Nausea, Vomiting Musculoskeletal: Denies: Myalgias, Arthralgias Skin: Denies: Rash Neurological: Denies: Headache Physical Exam Vital Signs/Narrative: Vital Signs Temp Pulse Resp BP Pulse Ox 03/07/20 18:12 98.1 F 101 H 16 138/83 H 94 General: Well nourished Head: Normocephalic Eyes: EOMI ENT: Moist mucous membranes Neck: Supple Cardiovascular: Regular rhythm, Tachycardia Respiratory: Rhonchi Abdomen: Soft, Nontender Skin: Normal color Neurological: Alert Psychological: Normal affect Diagnostic/Tx/Re-eval Impressions Chest X-Ray 03/07/20 19:00 IMPRESSION: No evidence of acute thoracic pathology. Electronically Signed: Leon Singh, at 20:09 EST Tel , Service support , 03/07/20 19:00 Chest 1 View (Portable) [RAD] Stat 03/07/20 19:15 Mucosa - Nose SARS-CoV-2 Antigen (Rapid) - Final SARS-CoV-2 (COVID 19) Laboratory Results 03/07/20 03/07/20 18:50 18:50 WBC 3.6 L RBC 4.43 L Hgb 14.5 Hct 43.3 MCV 97.7 H MCH 32.7 H MCHC 33.5 RDW Std Deviation 48.0 H RDW Coeff of Lionel 13.2 Plt Count 161 MPV 10.2 Immature Gran % (Auto) 0.300 Neut % (Auto) 66.1 Lymph % (Auto) 14.8 L [place] % (Auto) 14.3 H Eos % (Auto) 3.9 Baso % (Auto) 0.6 Absolute Neuts (auto) 2.4 Absolute Lymphs (auto) 0.53 L Nucleated RBC % 0 Differential Comment SCANNED Diff Path Review May foll Sodium 138 Potassium 3.9 Chloride 104 Carbon Dioxide 30.0 Anion Gap 4 L BUN 15 Creatinine 0.63 L Estim Creat Clear Calc 69.33 Est GFR (MDRD) Af Amer 162 Est GFR (MDRD) Non-Af 134 BUN/Creatinine Ratio 23.8 H Glucose 116 H Calcium 8.8 Total Bilirubin 1.20 H AST 23 ALT 55 Alkaline Phosphatase 123 H Total Protein 7.0 Albumin 3.7 Globulin 3.3 Albumin/Globulin Ratio 1.1 - Medical Decision Making EKG shows normal sinus rhythm at a rate of 93. Chest x-ray shows no acute pathology. Serum labs notable only for white blood cell count of 3.6. COVID-19 testing was positive. However the patient is stable he has normal pulse oximetry he does not appear dyspneic. At this point I do not see a benefit to hospitalization. However with his comorbidities he was advised to have a very low threshold to return. He does have a home pulse oximeter. Patient and family were advised on specific signs and symptoms to monitor for. Given that he does also have history of seasonal allergies and wheezing he was also given a prescription for steroid. Without a focal infiltrate I do not believe antibiotics are indicated at this time. All questions answered at bedside. Patient will follow-up as an outpatient and return for any new or worsening symptoms and the patient was discharged. ED Disposition - Plan for ED Patient: Disposition: Home or Assisted Living Diagnosis: COVID-19 Instructions: Coronavirus Disease 2019 (COVID-19) Prescriptions: Prednisone [Prednisone Intensol] 40 mg PO DAILY 5 Days ml Prescription Printed Referrals: Aixa Darnell PA [Primary Care Provider] -
--- NOTE | 2020-03-07 19:00 | RAD_ITS ---
STUDY: X-RAY CHEST REASON FOR EXAM: Male, 70 years old. Shortness of breath TECHNIQUE: Frontal view of the chest COMPARISON: None. FINDINGS: The lungs are clear. The lungs are otherwise clear. There are no pleural effusions. There is no pneumothorax. The heart is normal in size. The visualized osseous structures are within normal limits. RAD/Chest 1 View (Portable) IMPRESSION: No evidence of acute thoracic pathology. Electronically Signed: Leon Singh, at 20:09 EST Tel , Service support ,
[2020-03-07] MEDS: MethylPREDNISolone 125 MG/2 ML Vial IV (19:15)
[2020-03-07 19:20] VITALS: O2SAT 95
[2020-03-07 19:27] LABS: Absolute Lymphocyte Count 0.53 X10^3/uL (0.83-4.51); Absolute Neutrophil Count 2.4 X10^3/uL (2.0-7.7); Basophil# 0.02 X10^3/uL; Basophil% 0.6 % (0-1); Eosinophil# 0.14 X10^3/uL; Eosinophils% 3.9 % (0-5); Hematocrit 43.3 % (40-54); Hemoglobin 14.5 g/dL (13.0-16.5); Lymphocyte # 0.53 X10^3/ul (4.0); Lymphocyte % 14.8 % (19-41); Mean Corp Hgb Conc 33.5 g/dL (32-36); Mean Corpuscular Hgb 32.7 pg (27.0-32.0); Mean Corpuscular Volume 97.7 fL (80-94); Mean Platelet Vol. 10.2 fl (6.2-12.0); Monocyte# 0.51 X10^3/uL; Monocyte% 14.3 % (0-10); NRBC Flagged by Analyzer 0 % (0-5); Neutrophil # 2.36 X10^3/uL (2.7-7.7); Neutrophil % 66.1 % (47-70); POSITIVE DIFFERENTIAL YES; Platelet Count 161 K/mm3 (150-450); RBC Distribution Width CV 13.2 % (11.6-14.6); Red Blood Count 4.43 M/mm3 (4.6-6.2); White Blood Count 3.6 K/mm3 (4.4-11.0)
[2020-03-07 19:43] LABS: ALB/GLOB Ratio 1.1 RATIO (0.9-2.4); AST(SGOT) 23 U/L (15-37); Alanine Aminotransfer ALT/SGPT 55 U/L (16-61); Albumin, Serum 3.7 g/dL (3.2-5.0); Alkaline Phosphatase 123 U/L (45-117); Anion Gap 4 (5-15); BUN 15 mg/dL (7-18); BUN/Creat Ratio 23.8 RATIO (10-20); Calcium,Total 8.8 mg/dL (8.5-10.1); Chloride 104 mmol/L (98-107); Creatinine, Serum 0.63 mg/dL (0.70-1.30); EST Glomerular Filtration Rate 134 mL/min (>60); Est Glom Filt Rate - Afr Amer 162 mL/min (>60); Estimated Creatinine Clearance 69.33 ml/min; Globulin 3.3 g/dL (2.2-4.2); Glucose 116 mg/dL (74-106); Potassium 3.9 mmol/L (3.5-5.1); Sodium Level 138 mmol/L (136-145)
[2020-03-07 19:44] LABS: Differential Comment SCANNED; Differential Indicated SCAN CRITERIA MET
[2020-03-07 20:38] VITALS: BP 126/94; PULSE 98; RESP 26; O2SAT 93
[2020-03-07 21:02] VITALS: BP 126/94; PULSE 77; RESP 20; O2SAT 93
[2020-03-09 14:25] LABS: Pathologist Review Reviewed
== END 2020-03-07 21:02 | disposition home or self-care (01) ==
PROVIDERS: Emergency Provider Emergency Medicine; PCP Physician Assistant
DX: U07.1 COVID-19 (principal); G12.21 Amyotrophic lateral sclerosis; R13.10 Dysphagia, unspecified; Z79.899 Other long term (current) drug therapy
CPT/HCPCS: 71045; 80053; 85025; 87426; 93005; 96374; 99285; A4216

== ENCOUNTER → 2021-06-28 | Outpatient (REF) | payer SELFPAY | END | disposition home or self-care (01) | LOC: OLS.HOSPIC 22:16 | PROVIDERS: PCP Physician Assistant; Visit Provider Nurse Practitioner Acute Care | DX: R19.7 Diarrhea, unspecified (principal) | CPT/HCPCS: 87493 ==

== ENCOUNTER → 2021-08-02 | Outpatient (CLI) | payer MEDICARE, OTHER, SELFPAY ==
[2021-08-02 12:12] LABS: Hematocrit 45.5 % (40-54); Hemoglobin 15.2 g/dL (13.0-16.5); Mean Corp Hgb Conc 33.4 g/dL (32-36); Mean Corpuscular Hgb 34.1 pg (27.0-32.0); Mean Platelet Vol. 9.3 fl (6.2-12.0); Platelet Count 158 K/mm3 (150-450); RBC Distribution Width CV 13.1 % (11.6-14.6); RBC Distribution Width SD 49.4 fl (35.1-43.9); Red Blood Count 4.46 M/mm3 (4.6-6.2); White Blood Count 6.6 K/mm3 (4.4-11.0)
[2021-08-02 12:17] LABS: BUN 12 mg/dL (7-18); Creatinine, Serum 0.18 mg/dL (0.70-1.30); Glucose 108 mg/dL (74-106)
[2021-08-02 12:18] LABS: Anion Gap 6 (5-15); BUN/Creat Ratio 64.9 RATIO (10-20); Calcium,Total 8.5 mg/dL (8.5-10.1); Chloride 103 mmol/L (98-107); EST Glomerular Filtration Rate 547 mL/min (>60); Est Glom Filt Rate - Afr Amer 661 mL/min (>60); Potassium 4.4 mmol/L (3.5-5.1); Sodium Level 134 mmol/L (136-145)
== END | disposition home or self-care (01) ==
LOC: LABSPEC 11:52
PROVIDERS: PCP Physician Assistant; Referring Provider Family Medicine Hospice and Palliative Medicine; Visit Provider Family Medicine Hospice and Palliative Medicine
DX: G12.21 Amyotrophic lateral sclerosis (principal)
CPT/HCPCS: 80048; 85027